=== PATIENT | female | born 1960 | race Caucasian/White ===

== ENCOUNTER 2020-06-09 09:15 | Inpatient (IN) | payer MEDICARE, OTHER ==
[2020-06-09] MEDS ORDERED: fentaNYL (PF) 50 MCG/ML 2 ML AMP ONE (10:15)
[2020-06-09] MEDS ORDERED: IV FLUID CONTINUATION 300 ML IV ONE (10:24)
[2020-06-09] MEDS ORDERED: fentaNYL (PF) 50 MCG/ML 2 ML AMP IV ONE (10:24)
[2020-06-09] MEDS ORDERED: SODIUM CHLORIDE 0.9% 1,000 ML IV ONE (10:25)
[2020-06-09] MEDS: LIDOCAINE 1% INJ 10MG/ML (20 ML MDV) SQ ONE ×2 (10:40→10:43)
[2020-06-09] MEDS ORDERED: LIDOCAINE 1% INJ 10MG/ML (20 ML MDV) SQ ONE (10:40)
[2020-06-09] MEDS ORDERED: IOPAMIDOL-370 125ML BTL INJ ONE (10:58)
[2020-06-09] MEDS ORDERED: IOPAMIDOL-370 50ML BTL INJ ONE (10:58)
[2020-06-09] MEDS ORDERED: RX INFO: IV CONTRAST WAS GIVEN 1 EACH MISC MISCELLANE PRN (11:12)
--- NOTE | 2020-06-09 11:12 | P.CARDCATH ---
Description of Procedure: PROCEDURES PERFORMED: Left heart catheterization, bilateral coronary angiography INDICATION: NSTEMI HISTORY: Patient is a pleasant 60-year-old female with history of hypertension, psychiatric disorders, depression, anxiety who presented with accidental overdose of unknown medication and then was noted to be altered mental status. Patient had seizures in the emergency department at [facility] and therefore was intubated with Ativan drip placed. She had CT brain which showed no acute process. She had initial normal troponin however troponin elevated up to 2 and therefore cardiology was consult it. She also had EKGs which showed minimal ST elevation in lead V2, V3 in the lateral leads and bedside echo showed new-onset cardiomyopathy ejection fraction 25-30% with anterior hypokinesis. Due to concern of possible evolving KS, patient was transferred to [facility] for angiography and possible PCI. PROCEDURE: After the risks, benefits and alternatives of the above mentioned procedure explained in detail with the patient's nekt of kin, informed consent was obtained. Patient was taken to the catheterization lab and prepped and draped in usual fashion. 1% lidocaine was used to anesthetize the right femoral artery. A 6-Emirati sheath was placed in the right femoral artery using modified Seldinger technique and ultrasound. Left coronary angiography was performed with a 6-Emirati JL 3.5 catheter and right coronary angiography was performed with a 6-Emirati JR4 catheter in various views. A 6-Emirati pigtail catheter was inserted into the left ventricle and pressure measurements were obtained. Left ventriculography was performed in the [id number] projection with a power injection. A right femoral angiogram was performed with adequate anatomy for closure. A 6- Emirati Angio-Seal was placed with hemostasis achieved. The patient tolerated the procedure well. Patient was transported back to the post catheterization holding area in stable condition. Conscious Sedation: Patient was monitored under the direct supervision of vision of myself for conscious sedation using Versed and fentanyl for a total duration of 22 minutes HEMODYNAMICS: Aorta: 133/92 LV: 151/18, LVEDP 22 SELECTIVE CORONARY ARTERIOGRAPHY: LEFT MAIN: The left main is a large caliber vessel which trifurcates into the LAD, ramus and circumflex. There is no significant stenosis. LEFT ANTERIOR DESCENDING CORONARY ARTERY: LAD is a large caliber vessel which wraps around to the apex. There is no significant stenosis. RAMUS INTERMEDIUS: Moderate caliber ramus without significant stenosis. LEFT CIRCUMFLEX CORONARY ARTERY: Left circumflex is a moderate caliber vessel without significant stenosis. RIGHT CORONARY ARTERY: The right coronary artery is a large caliber vessel which gives off a PDA and PLV branch and is the dominant vessel. There is no significant stenosis. LEFT VENTRICULOGRAPHY: Left ventricular ejection fraction is 35-40% with apical hypokinesis likely consistent with Takotsubo's cardiomyopathy. There is no significant mitral regurgitation and no significant gradient with pullback across the aortic valve. FINAL IMPRESSION: 1. Normal coronary arteries as described above. 2. Reduced ejection fraction 35-40% percent apical hypokinesis likely consistent with Takotsubo's cardiomyopathy PLAN: 1. Aggressive risk factor modification per most recent ACC/AHA guidelines. 2. Optimization of heart failure regimen.
--- NOTE | 2020-06-09 15:18 | P.CNPUL ---
History of Present Illness Consult date: 06/09/20 Requesting physician: Jaxon Gates Reason for consult: other (Acute hypoxic respiratory failure secondary to seizure and possible drug overdose) Chief complaint: Mental status change. History of present illness: This is a 60-year-old female supposedly has multiple medical problems including seizure disorder, MS, depression, patient is primarily a patient of Patient presented to the ER at [facility], and she was noted to have altered mental status. While in the ER, patient developed seizure. Patient was intubated, and she was placed on Ativan drip after intubation. CT of the brain showed no acute process. Patient was noted to have normal troponin initially, however follow-up troponin was elevated by 2. Cardiology was consulted, EKG showed minimal ST elevation in lead V2 and V3 and in the lateral leads. Bedside echocardiogram showed severe cardiomyopathy with LV dysfunction of 25-50%, and anterior hypokinesis. The report specialist was concerned about possible evolving MT, hence he arrange for the patient to be transferred to [facility], and she underwent cardiac catheterization. noted to have normal coronaries, but extremely reduced ejection fraction and apical hypokinesis likely consistent with decreased to takostubo cardiomyopathy. 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 Patient is hemodynamically stable, she is sedated, on propofol drip, her ventilator settings are assist control rate of 14 FiO2 of 50% tidal volume is 500 and PEEP of 5. ABG is pending, and chest x-ray is pending. Supposedly the patient had a number of labs done while at [facility], none of them is available to me. There was also a concern that the patient may have overdosed on some of her medications, but the drug screen was basically unremarkable. Patient is on multiple medications for MS, depression, and she is also on methotrexate. Review of Systems ROS unobtainable: due to endotracheal tube Medications and Allergies Home Medications Medication Instructions Recorded Confirmed Type Baclofen [Lioresal] 10 mg PO BID 06/09/20 06/09/20 History DULoxetine HCL [Cymbalta] 60 mg PO DAILY 06/09/20 06/09/20 History Dalfampridine [Dalfampridine ER] 10 mg PO BID 06/09/20 06/09/20 History HYDROcodone/APAP 10-325MG [[place] 1 tab PO BID PRN 06/09/20 06/09/20 History 10-325] Levothyroxine Sodium [Synthroid] 75 mcg PO DAILY 06/09/20 06/09/20 History Losartan [Cozaar] 25 mg PO DAILY 06/09/20 06/09/20 History Mirabegron [Myrbetriq] 25 mg PO DAILY 06/09/20 06/09/20 History Morphine Sulfate Ir [MSIR] 15 mg PO Q8H 06/09/20 06/09/20 History Ondansetron [Zofran] 4 mg PO Q12HR PRN 06/09/20 06/09/20 History Peginterferon Beta-1A [Plegridy 125 mcg SQ Q28D 06/09/20 06/09/20 History Pen] Semaglutide [Ozempic] 0.25 mg SQ Q7D 06/09/20 06/09/20 History Topiramate [Topamax] 25 mg PO BID 06/09/20 06/09/20 History hydroCHLOROthiazide [Hydrodiuril] 12.5 mg PO DAILY 06/09/20 06/09/20 History lamoTRIgine [LaMICtal Xr] 50 mg PO DAILY 06/09/20 06/09/20 History metHOTREXate sodium [Methotrexate] 5 mg PO Q7D 06/09/20 06/09/20 History traZODone HCL [Desyrel] 50 mg PO HS 06/09/20 06/09/20 History Allergies Allergy/AdvReac Type Severity Reaction Status Date / Time Penicillins Allergy Unknown Unknown Verified 06/09/20 14:16 Physical Exam Vitals: Intake and Output 06/09/20 06/09/20 06/09/20 06:59 14:59 22:59 Intake Total 350 Balance 350 Intake: IV 350 Other: Weight 100 kg Physical Exam: Revealed 60-year-old female, obese, intubated and mechanically ventilated sedated on propofol. Head: Atraumatic, normocephalic. HEENT:[Neck is supple.] [No neck masses.] [No thyromegaly.] [No JVD.] Dry mucous membranes, orogastric tube and endotracheal tube are intact. Chest: [Symmetrical chest expansion, minimal crackles at the bases, no rhonchi and no wheezes. Cardiac Exam: [Normal S1 and S2, no S3 gallop, no murmur.] Abdomen: Obese, [Soft, nontender, no megaly, no rebound, no guarding, normal bowel sounds.] Extremities: [No clubbing, no edema, no cyanosis. Diminished pulses bilaterally.] Neurological Exam: Not assessed, patient is sedated, on propofol drip. Psychiatric: Could not assess. Musculoskeletal: No deformities. Assessment and Plan Assessment: Impression: Acute hypoxic respiratory failure secondary to status epilepticus requiring intubation and mechanical ventilation. Possible medications overdose. History of MS. History of depression. Morbid obesity. no documented history of seizure disorder. Possible cardiomyopathy. Nonischemic cardiomyopathy. Recommendation: Continue ventilatory support. Neurological consultation regarding seizure medications in the meantime continue propofol. Patient may have to be placed on Keppra. Neurology to address her MS medications. Enteral feeding to be started possibly tomorrow in the patient remains intubated. GI and DVT prophylaxis. Empiric antibiotics/Zosyn for possible aspiration. Chest x-ray is pending. Hemodynamic support if necessary, patient is not requiring any pressors or any inotropes at this point. Prognosis is guarded, we'll continue to follow. Time with Patient: Greater than 30
[2020-06-09] MEDS ORDERED: propofoL 100 ML IV ONE (15:28)
--- NOTE | 2020-06-09 15:37 | XR ---
EXAMINATION TYPE: XR chest 1V portable DATE OF EXAM: 06/09/2020 COMPARISON: NONE HISTORY: Check tube placement TECHNIQUE: Single view FINDINGS: There is nasogastric tube with the tip in the gastric fundus. There is endotracheal tube 3 cm from the marsha. There is some atelectasis in the left midlung field. There is no heart failure. B cat thorax is intact. IMPRESSION: Tubing in good position. Mild left side atelectasis.
[2020-06-09 15:38] LABS: ABG Base Excess -4.2 mmol/L; ABG HCO3 20 mmol/L (21-25); ABG Oxygen Saturation 95.4 % (94-97); ABG PCO2 32 mmHg (35-45); ABG PH 7.42 (7.35-7.45); ABG PO2 72 mmHg (83-108); ABG TCO2 21 mmol/L (19-24); Allen Test Performed? Yes
[2020-06-09] MEDS: PANTOPRAZOLE 40 MG/10 ML VIAL IVP SCH (15:39)
[2020-06-09] MEDS: ENOXAPARIN 40 MG/0.4 ML SYRINGE SQ SCH (15:39)
[2020-06-09] MEDS: CLINDAMYCIN 600 MG in DEXTROSE 5% IN WATER 50 ML IVPB SCH ×2 (15:39)
[2020-06-09] MEDS: levETIRAcetam IV 500 MG in SODIUM CHLORIDE 0.9% 100 ML IVPB SCH (15:43)
[2020-06-09 16:11] LABS: Basophils % (A) 0 %; Eosinophils % (A) 1 %; HGB 13.2 gm/dL (11.4-16.0); Lymphocytes # (A) 0.5 k/uL (1.0-4.8); Lymphocytes % (A) 7 %; MCV 94.1 fL (80.0-100.0); Mean Platelet Volume 7.6; Monocytes # (A) 0.4 k/uL (0-1.0); Monocytes % (A) 5 %; Neutrophils # (A) 6.4 k/uL (1.3-7.7); Neutrophils % (A) 86 %; Platelet Count 203 k/uL (150-450); RBC 4.14 m/uL (3.80-5.40); RDW 14.1 % (11.5-15.5); WBC 7.4 k/uL (3.8-10.6)
[2020-06-09 16:25] LABS: ALT 28 U/L (4-34); AST 39 U/L (14-36); African American GFR (CKD) >90 (>60 ml/min/1.73 sqM); Albumin 3.4 g/dL (3.5-5.0); Alkaline Phosphatase 76 U/L (38-126); Anion Gap 6 mmol/L; Blood Urea Nitrogen 9 mg/dL (7-17); Calcium 8.8 mg/dL (8.4-10.2); Carbon Dioxide 20 mmol/L (22-30); Chloride 114 mmol/L (98-107); Glucose 143 mg/dL (74-99); Magnesium 2.2 mg/dL (1.6-2.3); Non-African American GFR(CKD) >90 (>60 ml/min/1.73 sqM); Potassium 3.5 mmol/L (3.5-5.1); Sodium 140 mmol/L (137-145); Total Bilirubin 1.9 mg/dL (0.2-1.3); Total Protein 5.8 g/dL (6.3-8.2)
--- NOTE | 2020-06-09 17:45 | P.CNNES ---
History of Present Illness Consult date: 06/09/20 Requesting physician: Diaz Villarreal Reason for Consult: Altered mental status, seizures History of Present Illness: The patient is a 60-year-old female seen via tele-neurology for altered mental status and seizures. Patient was transferred this morning from [facility] to [facility] today at 10 am, for cardiac catheterization, and bilateral coronary angiography. Patient was initially admitted to [facility] yesterday for altered mental status, some concern about overdose on baclofen. Patient was found to have some ST segment elevation and abnormal 2-D echo. Patient had 2 seizures, was intubated, transferred to ICU. Patient was subsequently transferred to [facility] for further testing. According to EMS flow sheet, patient had undergone coronary angiography yesterday at [facility]. After the angiography, patient had 2 seizures in the ER. It was reported the patient may have overdosed on her baclofen causing her symptoms. Patient was intubated in [facility] ER and transferred to their ICU. Patient was found to have elevated troponin at 2.3, and some EKG changes. Patient had an echocardiogram completed and was found to have decreased cardiac activity and is being transferred to [facility] for possible intervention with cardiac cath. Per EMS report, her pupils were equal and reactive, lungs sounds clear and equal ramón aterally. Patient was intubated with size 7.0 ET tube. Her vital signs at the scene was blood pressure 152/80, pulse rate 94, saturation 97%, temperature 100.8. Patient had undergone computed tomography scan of the head without contrast as well as computed tomography scan of the head with contrast at [facility], both of which were normal. Patient has a negative urine drug screen and blood alcohol level. Chest x-ray performed here showed tubing in good position. Mild left-sided atelectasis. Patient's CBC is normal. ABG with pH 7.42, pCO2 32, saturation 95.4. Sodium and potassium normal. Renal functions normal. AST is mildly elevated 39, normal ALT 28. According to patient's home medication list, she is on Ampyra and Plegridy, indicating that she probably has multiple sclerosis. Uncertain as to who her neurologist is. No records available in our system. Patient's home medications were reviewed. Patient ICU has been receiving Ativan drip, also received some fentanyl, therefore at this time patient is sedated. Review of Systems ROS unobtainable: due to endotracheal tube, due to mental status Medications and Allergies Home Medications Medication Instructions Recorded Confirmed Type Baclofen [Lioresal] 10 mg PO BID 06/09/20 06/09/20 History DULoxetine HCL [Cymbalta] 60 mg PO DAILY 06/09/20 06/09/20 History Dalfampridine [Dalfampridine ER] 10 mg PO BID 06/09/20 06/09/20 History HYDROcodone/APAP 10-325MG [[place] 1 tab PO BID PRN 06/09/20 06/09/20 History 10-325] Levothyroxine Sodium [Synthroid] 75 mcg PO DAILY 06/09/20 06/09/20 History Losartan [Cozaar] 25 mg PO DAILY 06/09/20 06/09/20 History Mirabegron [Myrbetriq] 25 mg PO DAILY 06/09/20 06/09/20 History Morphine Sulfate Ir [MSIR] 15 mg PO Q8H 06/09/20 06/09/20 History Ondansetron [Zofran] 4 mg PO Q12HR PRN 06/09/20 06/09/20 History Peginterferon Beta-1A [Plegridy 125 mcg SQ Q28D 06/09/20 06/09/20 History Pen] Semaglutide [Ozempic] 0.25 mg SQ Q7D 06/09/20 06/09/20 History Topiramate [Topamax] 25 mg PO BID 06/09/20 06/09/20 History hydroCHLOROthiazide [Hydrodiuril] 12.5 mg PO DAILY 06/09/20 06/09/20 History lamoTRIgine [LaMICtal Xr] 50 mg PO DAILY 06/09/20 06/09/20 History metHOTREXate sodium [Methotrexate] 5 mg PO Q7D 06/09/20 06/09/20 History traZODone HCL [Desyrel] 50 mg PO HS 06/09/20 06/09/20 History Allergies Allergy/AdvReac Type Severity Reaction Status Date / Time Penicillins Allergy Unknown Unknown Verified 06/09/20 14:16 Physical Examination - Vital Signs Vital Signs: Intake and Output 06/08/20 06/09/20 06/09/20 22:59 06:59 14:59 Intake Total 350 Balance 350 Intake: IV 350 Other: Weight 100 kg On examination patient is a middle aged female, who is laying in the bed, intubated on mechanical ventilation. Patient at present is sedated, has just an hour ago stopped infusion of high dose Ativan drip. Patient's pupils are round and reacting, no corneals, no gag. Oculocephalics are present. Phase cannot be assessed as patient is intubated. Tongue and palate, hearing cannot be assessed. Muscle strength cannot be assessed. Patient does not withdraw to any painful stimuli. Tone is equal in the arms. Reflexes are diminished and plantars are flat. No obvious seizure activity noted. No obvious rash. No edema. S1 and S2 audible. Abdomen is soft nontender. Results - Laboratory Findings CBC and BMP: 06/09/20 15:30 06/09/20 15:30 Assessment and Plan Assessment: * Altered mental status, probable toxic metabolic encephalopathy. * Probable intention overdose on medication * Acute respiratory failure secondary to status epilepticus, requiring intubation and mechanical ventilation. * Recurrent seizure, possible status, now resolved. * History of Multiple sclerosis * Morbid obesity * Nonischemic cardiomyopathy. Plan: * Patient at present is intubated, heavily sedated, therefore examination is limited. No signs of obvious seizure activity. * Agree with starting Keppra 500 mg twice a day. * Stat EEG to rule out status epilepticus. * Resume Lamictal and Topamax, but discontinue Ampyra. * Medical management as per IM and ICU. * Spoke to patient's boyfriend Joni, is that there was a family argument and she became upset and took some bunch of pills which he did not know at all which ones she took. He told her to throw up and she did try to throw them up but then she did not feel well, therefore he brought her to the [facility]. He states the patient is not suicidal, it was just result of some family argument that she acted. She has MS, but does not know the name of her neurologist. * We will follow.
[2020-06-09 17:59] LABS: Appearance,Urine Turbid (Clear); Bilirubin,Urine Negative (Negative); Blood,Urine Large (Negative); Color,Urine Light Red; Glucose,Urine (UA) 3+ (Negative); Ketones,Urine Trace (Negative); Leukocyte Esterase,Urine Negative (Negative); Mucus,Urine Few /hpf; Nitrite,Urine Negative (Negative); PH, Urine 5.5 (5.0-8.0); Protein,Urine 1+ (Negative); RBC,Urine >182 /hpf (0-5); Squamous Epithelial Cell,Urine 1 /hpf (0-4); Urobilinogen,Urine <2.0 mg/dL (<2.0); WBC,Urine 1 /hpf (0-5)
[2020-06-09 18:00] LABS: Specific Gravity,Urine >1.050 (1.001-1.035)
[2020-06-09] MEDS ORDERED: Potassium Replacement Protocol 1 EACH MISC MISCELLANE PRN (19:11)
[2020-06-09] MEDS: POTASSIUM BICARBONATE/CIT AC 20 MEQ TABLET.EFF NG-TUBE SCH ×2 (20:32→21:22)
[2020-06-09] MEDS: TOPIRAMATE 25 MG TAB PO SCH (21:21)
[2020-06-09] MEDS: CHLORHEXIDINE GLUCONATE 15 ML CUP MUCOUS MEM SCH (21:21)
[2020-06-10] MEDS: CLINDAMYCIN 600 MG in DEXTROSE 5% IN WATER 50 ML IVPB SCH ×8 (00:57→23:41)
[2020-06-10] MEDS: levETIRAcetam IV 500 MG in SODIUM CHLORIDE 0.9% 100 ML IVPB SCH ×3 (00:57→23:42)
--- NOTE | 2020-06-10 01:00 | PCN ---
PROCEDURE NOTE OPERATIVE REPORT: Placement of left brachial arterial line. PREOPERATIVE DIAGNOSIS: Acute hypoxic respiratory failure. POSTOPERATIVE DIAGNOSIS: Acute hypoxic respiratory failure. ANESTHESIA: None deployed. PROCEDURE DETAILS: The patient was placed in the supine position, and the left brachial region was prepared in a sterile fashion. Drapes were applied. The left brachial artery was palpated, cannulated, a guidewire was placed, and a Cook's catheter was inserted over the guidewire, the guidewire was removed. Good blood flow, good waveform noted, no evidence of any complications, the line was secured using 3.0 silk sutures. MMODL / IJN: [id number] /
[2020-06-10 03:30] LABS: Basophils % (A) 0 %; Eosinophils # (A) 0.1 k/uL (0-0.7); Eosinophils % (A) 1 %; HCT 38.1 % (34.0-46.0); HGB 12.9 gm/dL (11.4-16.0); Lymphocytes # (A) 0.6 k/uL (1.0-4.8); Lymphocytes % (A) 9 %; MCH 31.7 pg (25.0-35.0); MCHC 33.8 g/dL (31.0-37.0); MCV 93.9 fL (80.0-100.0); Mean Platelet Volume 7.7; Monocytes # (A) 0.3 k/uL (0-1.0); Monocytes % (A) 5 %; Neutrophils # (A) 5.7 k/uL (1.3-7.7); Neutrophils % (A) 84 %; Platelet Count 175 k/uL (150-450); RBC 4.05 m/uL (3.80-5.40); RDW 14.1 % (11.5-15.5); WBC 6.8 k/uL (3.8-10.6)
[2020-06-10 03:41] LABS: ALT 28 U/L (4-34); AST 45 U/L (14-36); African American GFR (CKD) >90 (>60 ml/min/1.73 sqM); Albumin 3.2 g/dL (3.5-5.0); Alkaline Phosphatase 74 U/L (38-126); Anion Gap 5 mmol/L; Blood Urea Nitrogen 9 mg/dL (7-17); Calcium 8.6 mg/dL (8.4-10.2); Carbon Dioxide 22 mmol/L (22-30); Chloride 112 mmol/L (98-107); Glucose 133 mg/dL (74-99); Non-African American GFR(CKD) >90 (>60 ml/min/1.73 sqM); Potassium 3.4 mmol/L (3.5-5.1); Sodium 139 mmol/L (137-145); Total Bilirubin 1.9 mg/dL (0.2-1.3); Total Protein 5.6 g/dL (6.3-8.2)
[2020-06-10 05:34] LABS: ABG Base Excess -2.8 mmol/L; ABG HCO3 22 mmol/L (21-25); ABG Oxygen Saturation 98.6 % (94-97); ABG PCO2 36 mmHg (35-45); ABG PH 7.39 (7.35-7.45); ABG PO2 114 mmHg (83-108); ABG TCO2 23 mmol/L (19-24); Allen Test Performed? Yes
[2020-06-10] MEDS: LEVOTHYROXINE 75 MCG TAB PO SCH (05:55)
[2020-06-10] MEDS: POTASSIUM BICARBONATE/CIT AC 20 MEQ TABLET.EFF NG-TUBE SCH ×2 (05:56→09:37)
--- NOTE | 2020-06-10 07:13 | XR ---
EXAMINATION TYPE: XR chest 1V portable DATE OF EXAM: 06/10/2020 COMPARISON: Chest x-ray 06/09/2020 HISTORY: Intubated TECHNIQUE: Single frontal view of the chest is obtained. FINDINGS: Endotracheal tube is overlying appropriate position, there is an orogastric tube present a lso overlying appropriate position. No evident pneumothorax or pleural effusion. Patchy densities pre sent within the bilateral lungs. Cardiac mediastinal silhouette is within normal limits. IMPRESSION: Correlate for pneumonia
[2020-06-10] MEDS: CHLORHEXIDINE GLUCONATE 15 ML CUP MUCOUS MEM SCH ×2 (09:36→20:55)
[2020-06-10] MEDS: lamoTRIgine 25 MG TAB PO SCH (09:37)
[2020-06-10] MEDS: ENOXAPARIN 40 MG/0.4 ML SYRINGE SQ SCH (09:37)
[2020-06-10] MEDS: TOPIRAMATE 25 MG TAB PO SCH ×2 (09:38→20:55)
[2020-06-10] MEDS: PANTOPRAZOLE 40 MG/10 ML VIAL IVP SCH (09:38)
--- NOTE | 2020-06-10 12:55 | P.PN ---
Subjective Progress Note Date: 06/10/20 Principal diagnosis: Acute hypoxic respiratory failure secondary to seizure disorder and possibly multiple drug overdose. This is a 60-year-old female supposedly has multiple medical problems including seizure disorder, MS, depression, patient is primarily a patient of Patient presented to the ER at [facility], and she was noted to have altered mental status. While in the ER, patient developed seizure. Patient was intubated, and she was placed on Ativan drip after intubation. CT of the brain showed no acute process. Patient was noted to have normal troponin initially, however follow-up troponin was elevated by 2. Cardiology was consulted, EKG showed minimal ST elevation in lead V2 and V3 and in the lateral leads. Bedside echocardiogram showed severe cardiomyopathy with LV dysfunction of 25-50%, and anterior hypokinesis. The paving supervisor was concerned about possible evolving ND, hence he arrange for the patient to be transferred to [facility], and she underwent cardiac catheterization. noted to have normal coronaries, but extremely reduced ejection fraction and apical hypokinesis likely consistent with decreased to takostubo cardiomyopathy. 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 Patient is hemodynamically stable, she is sedated, on propofol drip, her ventilator settings are assist control rate of 14 FiO2 of 50% tidal volume is 500 and PEEP of 5. ABG is pending, and chest x-ray is pending. Supposedly the patient had a number of labs done while at [facility], none of them is available to me. There was also a concern that the patient may have overdosed on some of her medications, but the drug screen was basically unremarkable. Patient is on multiple medications for MS, depression, and she is also on methotrexate. Patient was reevaluated today on 06/10/2020, patient remains in the ICU, intubated and mechanically ventilated. She is on assist control rate of 14 tidal volume of 500 FiO2 40% PEEP of 5. I cut down her FiO2 down to 35%. ABG showed a pO2 of 114 pCO2 36 pH of 7.39. Patient is on propofol which I plan to hold and assess mental status as well as possibly assess for potential weaning. This was done, and shortly after the dose went down patient was extremely agitated, biting on the tube, was not appropriate, and she was placed back on propofol. Chest x-ray today was reviewed. It showed patchy densities within bilateral lung, very much consistent with the clinical picture of aspiration pneumonia, patient remains on antibiotics empirically for aspiration pneumonia. CBC showed normal WBC count normal hemoglobin normal differential. And normal platelets. Basic metabolic profile is normal except for low potassium of 3.4. Liver enzymes are borderline elevated. Urinalysis is relatively unremarkable except for hematuria, possibly related to catheter insertion. Objective - Vital Signs Vital signs: Vital Signs Temp 98.9 F 06/10/20 11:00 Pulse 67 06/10/20 11:00 Resp 28 H 06/10/20 11:00 BP 109/66 06/10/20 11:00 Pulse Ox 100 06/10/20 11:00 Intake & Output 06/09/20 06/10/20 06/10/20 18:59 06:59 18:59 Intake Total 700 665.5 Output Total 340 517 Balance 360 148.5 Weight 135.8 kg 136.1 kg Intake: IV 700 600 0.9@50 350 600 Intake, IV Titration 65.5 Amount propofoL 1,000 mg In 65.5 Empty Bag 1 bag @ Titrate IV .Q0M [facility] Rx#: [id number] Output: Urine 340 517 Other: Voiding Method Indwelling Catheter Indwelling Catheter Indwelling Catheter ABP, PAP, CO, CI - Last Documented Arterial Blood Pressure 127/59 - Exam Physical Exam: Revealed 60-year-old female, obese, intubated and mechanically ventilated sedated on propofol. Head: Atraumatic, normocephalic. HEENT:[Neck is supple.] [No neck masses.] [No thyromegaly.] [No JVD.] Dry mucous membranes, orogastric tube and endotracheal tube are intact. Chest: [Symmetrical chest expansion, minimal crackles at the bases, no rhonchi and no wheezes. Cardiac Exam: [Normal S1 and S2, no S3 gallop, no murmur.] Abdomen: Obese, [Soft, nontender, no megaly, no rebound, no guarding, normal bowel sounds.] Extremities: [No clubbing, no edema, no cyanosis. Diminished pulses bilaterally.] Neurological Exam: Not assessed, patient is sedated, on propofol drip. Psychiatric: Could not assess. Musculoskeletal: No deformities. - Labs CBC & Chem 7: 06/10/20 03:20 06/10/20 03:20 Labs: Abnormal Lab Results - Last 24 Hours (Table) 06/09/20 06/09/20 06/09/20 Range/Units 15:30 15:30 15:30 Lymphocytes # 0.5 L (1.0-4.8) k/uL ABG pCO2 (35-45) mmHg ABG pO2 (83-108) mmHg ABG HCO3 (21-25) mmol/L ABG O2 Saturation (94-97) % Potassium (3.5-5.1) mmol/L Chloride 114 H (98-107) mmol/L Carbon Dioxide 20 L (22-30) mmol/L Glucose 143 H (74-99) mg/dL Total Bilirubin 1.9 H (0.2-1.3) mg/dL AST 39 H (14-36) U/L Total Protein 5.8 L (6.3-8.2) g/dL Albumin 3.4 L (3.5-5.0) g/dL Urine Appearance Turbid H (Clear) Ur Specific [place] >1.050 H (1.001-1.035) Urine Protein 1+ H (Negative) Urine Glucose (UA) 3+ H (Negative) Urine Ketones Trace H (Negative) Urine Blood Large H (Negative) Urine RBC >182 H (0-5) /hpf Urine Mucus Few H (None) /hpf 06/09/20 06/10/20 06/10/20 Range/Units 15:35 03:20 03:20 Lymphocytes # 0.6 L (1.0-4.8) k/uL ABG pCO2 32 L (35-45) mmHg ABG pO2 72 L (83-108) mmHg ABG HCO3 20 L (21-25) mmol/L ABG O2 Saturation (94-97) % Potassium 3.4 L (3.5-5.1) mmol/L Chloride 112 H (98-107) mmol/L Carbon Dioxide (22-30) mmol/L Glucose 133 H (74-99) mg/dL Total Bilirubin 1.9 H (0.2-1.3) mg/dL AST 45 H (14-36) U/L Total Protein 5.6 L (6.3-8.2) g/dL Albumin 3.2 L (3.5-5.0) g/dL Urine Appearance (Clear) Ur Specific [place] (1.001-1.035) Urine Protein (Negative) Urine Glucose (UA) (Negative) Urine Ketones (Negative) Urine Blood (Negative) Urine RBC (0-5) /hpf Urine Mucus (None) /hpf 06/10/20 Range/Units 05:25 Lymphocytes # (1.0-4.8) k/uL ABG pCO2 (35-45) mmHg ABG pO2 114 H (83-108) mmHg ABG HCO3 (21-25) mmol/L ABG O2 Saturation 98.6 H (94-97) % Potassium (3.5-5.1) mmol/L Chloride (98-107) mmol/L Carbon Dioxide (22-30) mmol/L Glucose (74-99) mg/dL Total Bilirubin (0.2-1.3) mg/dL AST (14-36) U/L Total Protein (6.3-8.2) g/dL Albumin (3.5-5.0) g/dL Urine Appearance (Clear) Ur Specific [place] (1.001-1.035) Urine Protein (Negative) Urine Glucose (UA) (Negative) Urine Ketones (Negative) Urine Blood (Negative) Urine RBC (0-5) /hpf Urine Mucus (None) /hpf Microbiology - Last 24 Hours (Table) 06/09/20 15:30 Gram Stain - Preliminary Sputum Sputum Culture - Preliminary Assessment and Plan Assessment: Impression: Acute hypoxic respiratory failure secondary to status epilepticus requiring intubation and mechanical ventilation. Possible medications overdose. History of MS. History of depression. Morbid obesity. no documented history of seizure disorder. Possible cardiomyopathy. Nonischemic cardiomyopathy. Recommendation: Continue ventilatory support. continue propofol. Started on Keppra by neurology. Neurology is addressing her issue related to her seizures and related to her MS. Start enteral feeding today via orogastric tube. Short trial of sedation holiday was given today, however the patient could not tolerate coming off propofol Bishop had to be re-sedated and we will readdress weaning and extubation probably in the next 24 hours. GI and DVT prophylaxis. Empiric antibiotics cLindamycin for aspiration pneumonia. Patient remains quite ill, not ready for weaning and extubation, critical care time is over 30 minutes Time with Patient: Greater than 30
[2020-06-10] MEDS ORDERED: FUROSEMIDE 10 MG/ML 2 ML VIAL IV ONE (18:00)
[2020-06-10] MEDS ORDERED: POTASSIUM BICARBONATE/CIT AC 20 MEQ TABLET.EFF NG-TUBE SCH (18:00)
--- NOTE | 2020-06-10 20:11 | P.CRDCN ---
History of Present Illness History of present illness: HISTORY OF PRESENTING ILLNESS Patient is a pleasant 60-year-old female with history of hypertension, psychiatric disorders, depression, anxiety who presented with accidental overdose of unknown medication and then was noted to be altered mental status. Patient had seizures in the emergency department at [facility] and therefore was intubated with Ativan drip placed. She had CT brain which showed no acute process. She had initial normal troponin however troponin elevated up to 2 and therefore cardiology was consult it. She also had EKGs which showed minimal ST elevation in lead V2, V3 in the lateral leads and bedside echo showed new-onset cardiomyopathy ejection fraction 25-30% with anterior hypokinesis. Due to concern of possible evolving NM, patient was transferred to [facility] for angiography and possible PCI. Left heart catheterization was performed yesterday which showed normal coronary arteries and left ventricular gram showed mildly improved ejection fraction 35-40% with apical hypokinesis consistent with Takotsubo's cardiomyopathy. She is still somewhat altered when weaning was attempted and she remains on ventilator. REVIEW OF SYSTEMS At the time of my exam: Unable to obtain secondary to altered mental status, intubation PHYSICAL EXAMINATION Vital signs reviewed. CONSTITUTIONAL: No apparent distress, sedated on ventilator HEENT: Head is normocephalic. Pupils are equal, round. Sclerae anicteric. Mucous membranes of the mouth are moist. +ETT No JVD. No carotid bruit. CHEST EXAMINATION: Lungs are clear to auscultation. No chest wall tenderness is noted on palpation or with deep breathing. HEART EXAMINATION: Regular rate and rhythm. S1, S2 heard. No murmurs, gallops or rub. ABDOMEN: Soft, nontender. Positive bowel sounds. EXTREMITIES: 2+ peripheral pulses, no lower extremity edema and no calf tenderness. NEUROLOGIC EXAMINATION: Patient is sedated on ventilator. ASSESSMENT 1. Non-STEMI 2. Takotsubo's cardiomyopathy with EF mildly improved on left ventriculogram to 35-40% 3. Ventilator dependent respiratory failure secondary to altered mental status 4. Accidental drug overdose 5. Essential hypertension 6. Altered mental status PLAN Optimize heart failure regimen as able. Toprol has able and continue daily aspirin. Hopeful extubation tomorrow. Further recommendations to follow. Past Medical History Past Medical History: Coronary Artery Disease (CAD), Chest Pain / Angina, Heart Failure, COPD, Eye Disorder, Liver Disease, Respiratory Disorder Additional Past Medical History / Comment(s): HIV, IV drug abuse, ETOH (unsure last drink), Multiple sclerosis, NM, heart failure, possibe unknown cancer, blind right eye. swelling bilateral lower extremities, anxiety, and depression. Information provided by daughter, Candelaria Amos History of Any Multi-Drug Resistant Organisms: None Reported Past Surgical History: Cholecystectomy, Heart Catheterization, Hysterectomy Past Psychological History: Anxiety, Depression Smoking Status: Former smoker Past Alcohol Use History: Occasional Past Drug Use History: IV Drug Use - Past Family History Daughter(s) Family Medical History: Thyroid Disorder Additional Family Medical History / Comment(s): cardiomyopathy, anxiety, cholecystitis Medications and Allergies Home Medications Medication Instructions Recorded Confirmed Type Baclofen [Lioresal] 10 mg PO BID 06/09/20 06/09/20 History DULoxetine HCL [Cymbalta] 60 mg PO DAILY 06/09/20 06/09/20 History Dalfampridine [Dalfampridine ER] 10 mg PO BID 06/09/20 06/09/20 History HYDROcodone/APAP 10-325MG [[place] 1 tab PO BID PRN 06/09/20 06/09/20 History 10-325] Levothyroxine Sodium [Synthroid] 75 mcg PO DAILY 06/09/20 06/09/20 History Losartan [Cozaar] 25 mg PO DAILY 06/09/20 06/09/20 History Mirabegron [Myrbetriq] 25 mg PO DAILY 06/09/20 06/09/20 History Morphine Sulfate Ir [MSIR] 15 mg PO Q8H 06/09/20 06/09/20 History Ondansetron [Zofran] 4 mg PO Q12HR PRN 06/09/20 06/09/20 History Peginterferon Beta-1A [Plegridy 125 mcg SQ Q28D 06/09/20 06/09/20 History Pen] Semaglutide [Ozempic] 0.25 mg SQ Q7D 06/09/20 06/09/20 History Topiramate [Topamax] 25 mg PO BID 06/09/20 06/09/20 History hydroCHLOROthiazide [Hydrodiuril] 12.5 mg PO DAILY 06/09/20 06/09/20 History lamoTRIgine [LaMICtal Xr] 50 mg PO DAILY 06/09/20 06/09/20 History metHOTREXate sodium [Methotrexate] 5 mg PO Q7D 06/09/20 06/09/20 History traZODone HCL [Desyrel] 50 mg PO HS 06/09/20 06/09/20 History Allergies Allergy/AdvReac Type Severity Reaction Status Date / Time Penicillins Allergy Unknown Unknown Verified 06/09/20 14:16 Physical Exam Vitals: Vital Signs Temp Pulse Pulse Resp BP Pulse Ox 06/10/20 19:00 84 14 133/66 100 06/10/20 18:00 73 18 125/71 100 06/10/20 17:00 69 14 100 06/10/20 16:00 99.5 F 81 15 129/68 100 06/10/20 15:00 68 17 123/67 100 06/10/20 14:00 65 14 130/68 100 06/10/20 13:00 68 16 119/63 100 06/10/20 12:00 98.9 F 73 14 123/65 97 06/10/20 11:00 98.9 F 67 28 H 109/66 100 06/10/20 10:00 70 16 107/58 100 06/10/20 09:00 70 16 101/59 99 06/10/20 08:00 98.5 F 71 18 112/48 100 06/10/20 07:00 64 18 111/50 100 06/10/20 06:00 77 18 103/50 100 06/10/20 05:00 78 16 99/53 99 06/10/20 04:00 97.9 F 84 15 110/51 99 06/10/20 03:36 83 16 06/10/20 03:00 91 17 110/54 100 06/10/20 02:00 87 18 106/62 100 06/10/20 01:00 82 18 106/55 100 06/10/20 00:00 98.5 F 82 84 16 100 06/09/20 23:00 80 17 110/63 100 06/09/20 22:00 80 16 112/62 98 06/09/20 21:30 84 17 112/62 99 06/09/20 21:00 77 17 98/60 99 06/09/20 20:30 81 15 98/60 98 Intake and Output 06/10/20 06/10/20 06/10/20 06:59 14:59 22:59 Intake Total 515.5 450 250 Output Total 312 195 90 Balance 203.5 255 160 Intake: IV 450 350 250 0.9@50 450 350 250 Intake, IV Titration 65.5 100 Amount propofoL 1,000 mg In 65.5 100 Empty Bag 1 bag @ Titrate IV .Q0M [facility] Rx#: [id number] Output: Urine 312 195 90 Other: Voiding Method Indwelling Catheter Indwelling Catheter Indwelling Catheter Weight 136.1 kg ABP, PAP, CO, CI - Last 8 Hours Arterial Blood Pressure 137/68 Arterial Blood Pressure 150/74 Arterial Blood Pressure 144/69 Arterial Blood Pressure 133/65 Arterial Blood Pressure 133/61 Arterial Blood Pressure 124/58 Arterial Blood Pressure 134/60 Results 06/10/20 03:20 06/10/20 15:30 Cardiac Enzymes 06/10/20 Range/Units 03:20 AST 45 H (14-36) U/L CBC 06/10/20 Range/Units 03:20 WBC 6.8 (3.8-10.6) k/uL RBC 4.05 (3.80-5.40) m/uL Hgb 12.9 (11.4-16.0) gm/dL Hct 38.1 (34.0-46.0) % Plt Count 175 (150-450) k/uL Comprehensive Metabolic Panel 06/10/20 06/10/20 Range/Units 03:20 15:30 Sodium 139 (137-145) mmol/L Potassium 3.4 L 3.6 (3.5-5.1) mmol/L Chloride 112 H (98-107) mmol/L Carbon Dioxide 22 (22-30) mmol/L BUN 9 (7-17) mg/dL Creatinine 0.56 (0.52-1.04) mg/dL Glucose 133 H (74-99) mg/dL Calcium 8.6 (8.4-10.2) mg/dL AST 45 H (14-36) U/L ALT 28 (4-34) U/L Alkaline Phosphatase 74 (38-126) U/L Total Protein 5.6 L (6.3-8.2) g/dL Albumin 3.2 L (3.5-5.0) g/dL Current Medications Generic Name Dose Route Start Last Admin Trade Name Freq PRN Reason Stop Dose Admin Chlorhexidine Gluconate 15 ml 06/09/20 21:00 06/10/20 09:36 Chlorhexidine Gluconate 15 Ml Cup MUCOUS MEM 15 ml BID JASPREET Administration Enoxaparin Sodium 40 mg 06/09/20 15:00 06/10/20 09:37 Enoxaparin 40 Mg/0.4 Ml Syringe SQ 40 mg DAILY JASPREET Administration Clindamycin Phosphate 600 mg/ 54 mls @ 50 mls/hr 06/09/20 16:00 06/10/20 15:26 Dextrose/Water IVPB 50 mls/hr Q8HR JASPREET Administration Levetiracetam 500 mg/ Sodium 105 mls @ 400 mls/hr 06/09/20 16:00 06/10/20 11:00 Chloride IVPB 400 mls/hr Q12HR@0000,1200 JASPREET Administration Propofol 1,000 mg/ IV Solution 100 mls @ 0 mls/hr 06/09/20 16:00 06/10/20 17: 03 IV 15 mcg/kg/min .Q0M JASPREET 12.249 mls/hr Administration Protocol Titrate Sodium Chloride 1,000 mls @ 20 mls/hr 06/10/20 18:45 Saline 0.9% IV .Q24H JASPREET Lamotrigine 50 mg 06/10/20 09:00 06/10/20 09:37 Lamotrigine 25 Mg Tab PO 50 mg DAILY JASPREET Administration Levothyroxine Sodium 75 mcg 06/10/20 06:30 06/10/20 05:55 Levothyroxine 75 Mcg Tab PO 75 mcg DAILY@0630 JASPREET Administration Miscellaneous Information 1 each 06/09/20 11:12 Rx Info: Iv Contrast Was Given 1 Each Misc MISCELLANE 06/11/20 11:12 DAILY PRN Per Protocol Miscellaneous Information 1 each 06/09/20 19:11 Potassium Replacement Protocol 1 Each Misc MISCELLANE DAILY PRN Per Protocol Protocol Pantoprazole Sodium 40 mg 06/09/20 15:00 06/10/20 09:38 Pantoprazole 40 Mg/10 Ml Vial IVP 40 mg DAILY JASPREET Administration Topiramate 25 mg 06/09/20 21:00 06/10/20 09:38 Topiramate 25 Mg Tab PO 25 mg BID JASPREET Administration Intake and Output 06/10/20 06/10/20 06/10/20 06:59 14:59 22:59 Intake Total 515.5 450 250 Output Total 312 195 90 Balance 203.5 255 160 Intake: IV 450 350 250 0.9@50 450 350 250 Intake, IV Titration 65.5 100 Amount propofoL 1,000 mg In 65.5 100 Empty Bag 1 bag @ Titrate IV .Q0M [facility] Rx#: [id number] Output: Urine 312 195 90 Other: Voiding Method Indwelling Catheter Indwelling Catheter Indwelling Catheter Weight 136.1 kg 06/10/20 03:20 06/10/20 15:30
--- NOTE | 2020-06-10 23:10 | P.PN ---
Subjective Progress Note Date: 06/10/20 This is a follow-up tele-neurology follow-up performed today on 06/10/2020. Patient has not had any more seizures. According to the nursing report, one of the nurse from last night, checked with poison control. Patient was recommended to be on benzodiazepines. Antiepileptic medications typically does not help with seizures/encephalopathy from baclofen overdose. EEG is still pending. Objective - Vital Signs Vital signs: Vital Signs Temp 98.1 F 06/10/20 20:00 Pulse 87 06/10/20 21:00 Resp 15 06/10/20 21:00 BP 125/45 06/10/20 21:00 Pulse Ox 100 06/10/20 21:00 Intake & Output 06/10/20 06/10/20 06/11/20 06:59 18:59 06:59 Intake Total 665.5 700 50 Output Total 517 285 340 Balance 148.5 415 -290 Weight 136.1 kg Intake: IV 600 600 50 0.9@50 600 600 50 Intake, IV Titration 65.5 100 Amount propofoL 1,000 mg In 65.5 100 Empty Bag 1 bag @ Titrate IV .Q0M [facility] Rx#: [id number] Output: Urine 517 285 340 Other: Voiding Method Indwelling Catheter Indwelling Catheter Indwelling Catheter ABP, PAP, CO, CI - Last Documented Arterial Blood Pressure 120/62 - Exam Patient is intubated, sedated on propofol. Also on Keppra 500 mg twice a day. No seizure-like activity noted. - Labs CBC & Chem 7: 06/10/20 03:20 06/10/20 15:30 Labs: Abnormal Lab Results - Last 24 Hours (Table) 06/10/20 06/10/20 06/10/20 Range/Units 03:20 03:20 05:25 Lymphocytes # 0.6 L (1.0-4.8) k/uL ABG pO2 114 H (83-108) mmHg ABG O2 Saturation 98.6 H (94-97) % Potassium 3.4 L (3.5-5.1) mmol/L Chloride 112 H (98-107) mmol/L Glucose 133 H (74-99) mg/dL Total Bilirubin 1.9 H (0.2-1.3) mg/dL AST 45 H (14-36) U/L Total Protein 5.6 L (6.3-8.2) g/dL Albumin 3.2 L (3.5-5.0) g/dL Microbiology - Last 24 Hours (Table) 06/09/20 15:30 Blood Culture - Preliminary Blood No Growth after 24 hours 06/09/20 15:30 Gram Stain - Preliminary Sputum Sputum Culture - Preliminary Assessment and Plan Assessment: * Altered mental status, probable toxic metabolic encephalopathy. * Probable intentional overdose on baclofen (due to family argument) * Acute respiratory failure secondary to status epilepticus, requiring int ubation and mechanical ventilation. * Recurrent seizure, possible status, now resolved. * History of Multiple sclerosis * Morbid obesity * Nonischemic cardiomyopathy. Plan: * Patient at present is intubated, sedated on propofol, therefore examination is limited. No signs of obvious seizure activity. * Continue Keppra 500 mg twice a day. * Await EEG to rule out status epilepticus. * Resume Lamictal and Topamax, but discontinue Ampyra. * Medical management as per IM and ICU. * Spoke to patient's boyfriend Joni, is that there was a family argument and she became upset and took some bunch of pills which he did not know at all which ones she took. He told her to throw up and she did try to throw them up but then she did not feel well, therefore he brought her to the [facility]. He states the patient is not suicidal, it was just result of some family argument that she acted. She has MS, but does not know the name of her neurologist. * We will follow.
[2020-06-10] MEDS: SODIUM CHLORIDE 0.9% 1,000 ML IV SCH (23:43)
[2020-06-11 04:34] LABS: Basophils % (A) 0 %; Eosinophils # (A) 0.2 k/uL (0-0.7); Eosinophils % (A) 3 %; HCT 37.2 % (34.0-46.0); Lymphocytes # (A) 0.7 k/uL (1.0-4.8); Lymphocytes % (A) 12 %; MCH 32.7 pg (25.0-35.0); MCHC 34.8 g/dL (31.0-37.0); MCV 93.9 fL (80.0-100.0); Mean Platelet Volume 7.9; Monocytes # (A) 0.4 k/uL (0-1.0); Monocytes % (A) 6 %; Neutrophils # (A) 4.9 k/uL (1.3-7.7); Neutrophils % (A) 78 %; Platelet Count 172 k/uL (150-450); RBC 3.96 m/uL (3.80-5.40); WBC 6.2 k/uL (3.8-10.6)
[2020-06-11 04:57] LABS: ALT 33 U/L (4-34); AST 67 U/L (14-36); African American GFR (CKD) >90 (>60 ml/min/1.73 sqM); Albumin 3.2 g/dL (3.5-5.0); Alkaline Phosphatase 71 U/L (38-126); Anion Gap 5 mmol/L; Blood Urea Nitrogen 11 mg/dL (7-17); Calcium 8.6 mg/dL (8.4-10.2); Carbon Dioxide 25 mmol/L (22-30); Chloride 109 mmol/L (98-107); Glucose 123 mg/dL (74-99); Non-African American GFR(CKD) >90 (>60 ml/min/1.73 sqM); Potassium 3.6 mmol/L (3.5-5.1); Sodium 139 mmol/L (137-145); Total Bilirubin 1.6 mg/dL (0.2-1.3); Total Protein 5.7 g/dL (6.3-8.2)
[2020-06-11 05:33] LABS: ABG Base Excess 0.9 mmol/L; ABG HCO3 26 mmol/L (21-25); ABG Oxygen Saturation 99.1 % (94-97); ABG PCO2 40 mmHg (35-45); ABG PH 7.41 (7.35-7.45); ABG PO2 128 mmHg (83-108); ABG TCO2 27 mmol/L (19-24); Allen Test Performed? Yes
[2020-06-11] MEDS: LEVOTHYROXINE 75 MCG TAB PO SCH (05:53)
[2020-06-11] MEDS ORDERED: POTASSIUM BICARBONATE/CIT AC 20 MEQ TABLET.EFF NG-TUBE SCH (06:00)
[2020-06-11] MEDS ORDERED: POTASSIUM CHLORIDE ER 20 MEQ TAB.ER PO SCH (06:00)
--- NOTE | 2020-06-11 07:22 | XR ---
EXAMINATION TYPE: XR chest 1V portable DATE OF EXAM: 06/11/2020 COMPARISON: 06/10/2020 HISTORY: SOB, Follow Up FINDINGS: Endotracheal tube is 1.4 cm from the marsha. NG tube is seen coursing into the stomach. Perihilar and basilar infiltrates left greater than right persist. Stable appearance of the cardio-mediastinal structures at this time. Pleural effusion unchanged. IMPRESSION: 1. Stable portable chest. Clinical correlation and follow up until resolution is recommended.
[2020-06-11] MEDS: CLINDAMYCIN 600 MG in DEXTROSE 5% IN WATER 50 ML IVPB SCH ×6 (08:20→23:52)
[2020-06-11] MEDS: TOPIRAMATE 25 MG TAB PO SCH ×2 (08:21→21:23)
[2020-06-11] MEDS: lamoTRIgine 25 MG TAB PO SCH (08:21)
[2020-06-11] MEDS: METOPROLOL SUCCINATE (ER) 25 MG TAB.ER.24H PO SCH (08:21)
[2020-06-11] MEDS: ASPIRIN 81 MG PO SCH (08:21)
[2020-06-11] MEDS: PANTOPRAZOLE 40 MG/10 ML VIAL IVP SCH (08:21)
[2020-06-11] MEDS: ENOXAPARIN 40 MG/0.4 ML SYRINGE SQ SCH (08:22)
[2020-06-11] MEDS: CHLORHEXIDINE GLUCONATE 15 ML CUP MUCOUS MEM SCH (08:22)
--- NOTE | 2020-06-11 11:13 | P.PN ---
Subjective Progress Note Date: 06/11/20 Principal diagnosis: Acute hypoxic respiratory failure, overdose possibly related to baclofen, seizures This is a 60-year-old female supposedly has multiple medical problems including seizure disorder, MS, depression, patient is primarily a patient of Patient presented to the ER at [facility], and she was noted to have altered mental status. While in the ER, patient developed seizure. Patient was intubated, and she was placed on Ativan drip after intubation. CT of the brain showed no acute process. Patient was noted to have normal troponin initially, however follow-up troponin was elevated by 2. Cardiology was consulted, EKG showed minimal ST elevation in lead V2 and V3 and in the lateral leads. Bedside echocardiogram showed severe cardiomyopathy with LV dysfunction of 25-50%, and anterior hypokinesis. The warp scouring vat tender was concerned about possible evolving GA, hence he arrange for the patient to be transferred to [facility], and she underwent cardiac catheterization. noted to have normal coronaries, but extremely reduced ejection fraction and apical hypokinesis likely consistent with decreased to takostubo cardiomyopathy. Patient remained on mechanical ventilation while in the analytical lab technician, after the cardiac catheterization, patient was transferred to the ICU, and I was asked to see her on consultation. Patient is hemodynamically stable, she is sedated, on propofol drip, her ventilator settings are assist control rate of 14 FiO2 of 50% tidal volume is 500 and PEEP of 5. ABG is pending, and chest x-ray is pending. Supposedly the patient had a number of labs done while at [facility], none of them is available to me. There was also a concern that the patient may have overdosed on some of her medications, but the drug screen was basically unremarkable. Patient is on multiple medications for MS, depression, and she is also on methotrexate. Patient was reevaluated today on 06/10/2020, patient remains in the ICU, intubated and mechanically ventilated. She is on assist control rate of 14 tidal volume of 500 FiO2 40% PEEP of 5. I cut down her FiO2 down to 35%. ABG showed a pO2 of 114 pCO2 36 pH of 7.39. Patient is on propofol which I plan to hold and assess mental status as well as possibly assess for potential weaning. This was done, and shortly after the dose went down patient was extremely agitated, biting on the tube, was not appropriate, and she was placed back on pr opofol. Chest x-ray today was reviewed. It showed patchy densities within bilateral lung, very much consistent with the clinical picture of aspiration pneumonia, patient remains on antibiotics empirically for aspiration pneumonia. CBC showed normal WBC count normal hemoglobin normal differential. And normal platelets. Basic metabolic profile is normal except for low potassium of 3.4. Liver enzymes are borderline elevated. Urinalysis is relatively unremarkable except for hematuria, possibly related to catheter insertion. On 06/11/2020 patient seen in follow-up in intensive care unit, she remains sedated and intubated on mechanical ventilator, on assist control mode of ventilation with a rate of 14, tidal volume is 500, FiO2 35% and PEEP of 5, this morning's blood gas has been reviewed showing a pO2 of 128, pCO2 of 40, and pH of 7.41, and that was done on 35% FiO2 and FiO2 had since been dropped to 25%, patient presented on 0.9 normal saline at a rate of 20 ML per hour, Diprivan is a 20 mics per kilo per minute, no other drips, no tube feedings have been started yet with the goal of possible extubation today. Her chest x-ray today shows perihilar basilar infiltrates left greater than right without significant change. Today's labs have been reviewed, white blood cell count is normal at 6.2, hemoglobin is 13, sodium is 139 with potassium is 3.6, chloride is 109, CO2 is 25, B1 is 11 creatinine 0.73. No obvious seizure activity has been noted since admission , neurology is following, EEG is pending, patient is currently on Keppra 500 mg twice daily, in addition to Lamictal and Topamax. She is on empiric antibiotics in the form of clindamycin for possibility of aspiration pneumonia and she was given 1 dose of IV Lasix last night 20 mg, however overall remains in positive fluid balance. Her blood and sputum cultures have been negative thus far. Her urine looks turbid, however urinalysis on admission did not suggest presence of urinary tract infection. Objective - Vital Signs Vital signs: Vital Signs Temp 99.5 F 06/11/20 04:00 Pulse 86 06/11/20 07:00 Resp 14 06/11/20 07:00 BP 111/73 06/11/20 07:00 Pulse Ox 100 06/11/20 07:00 Intake & Output 06/10/20 06/11/20 06/11/20 18:59 06:59 18:59 Intake Total 700 331.405 101.32 Output Total 285 625 10 Balance 415 -293.595 91.32 Weight 135.9 kg Intake: IV 600 200 20 0.9@50 600 200 20 Intake, IV Titration 100 131.405 81.32 Amount propofoL 1,000 mg In 100 131.405 81.32 Empty Bag 1 bag @ Titrate IV .Q0M [facility] Rx#: [id number] Output: Urine 285 625 10 Other: Voiding Method Indwelling Catheter Indwelling Catheter ABP, PAP, CO, CI - Last Documented Arterial Blood Pressure 108/59 - Exam GENERAL EXAM: Today, intubated, 60-year-old white female, on assist control mode of ventilation with FiO2 of 35% and PEEP of 5 comfortable in no apparent distress. HEAD: Normocephalic/atraumatic. EYES: Normal reaction of pupils, equal size. Conjunctiva pink, sclera white. NOSE: Clear with pink turbinates. THROAT: No erythema or exudates. NECK: No masses, no JVD, no thyroid enlargement, no adenopathy. CHEST: No chest wall deformity. Symmetrical expansion. LUNGS: Equal air entry with no crackles, wheeze, rhonchi or dullness. CVS: Regular rate and rhythm, normal S1 and S2, no gallops, no murmurs, no rubs ABDOMEN: Soft, nontender. No hepatosplenomegaly, normal bowel sounds, no guarding or rigidity. EXTREMITIES: No clubbing, no edema, no cyanosis, 2+ pulses and upper and lower extremities. MUSCULOSKELETAL: Muscle strength and tone normal. SPINE: No scoliosis or deformity SKIN: No rashes CENTRAL NERVOUS SYSTEM: Sedated, intubated. No focal deficits, tone is normal in all 4 extremities. - Labs CBC & Chem 7: 06/11/20 04:25 06/11/20 04:25 Labs: Abnormal Lab Results - Last 24 Hours (Table) 06/11/20 06/11/20 06/11/20 Range/Units 04:25 04:25 05:27 Lymphocytes # 0.7 L (1.0-4.8) k/uL ABG pO2 128 H (83-108) mmHg ABG HCO3 26 H (21-25) mmol/L ABG Total CO2 27 H (19-24) mmol/L ABG O2 Saturation 99.1 H (94-97) % Chloride 109 H (98-107) mmol/L Glucose 123 H (74-99) mg/dL Total Bilirubin 1.6 H (0.2-1.3) mg/dL AST 67 H (14-36) U/L Total Protein 5.7 L (6.3-8.2) g/dL Albumin 3.2 L (3.5-5.0) g/dL Microbiology - Last 24 Hours (Table) 06/09/20 15:30 Gram Stain - Final Sputum Sputum Culture - Final 06/09/20 15:30 Blood Culture - Preliminary Blood No Growth after 24 hours Assessment and Plan Plan: Assessment: #1. Acute hypoxic respiratory failure related to status epilepticus requiring intubation and mechanical ventilation. Patient was intubated on 06/08/[address] [facility] emergency department and was transferred to the [facility] on 06/09/2020. She has remained intubated since #2. Possible aspiration pneumonia and patient is empirically covered with clindamycin #3. Nonischemic cardiomyopathy with possibility of a skilled nursing cardiomyopathy #4. Possible intentional overdose, related to baclofen #5. History of MS #6. History of depression #7. Morbid obesity #8. History of depression Plan: We'll give the patient and additional dose of Lasix 40 mg once Todays chest x-ray has been reviewed Decrease FiO2 down to 25% Continue clindamycin No seizure activity Neurology is following Hemodynamically stable Proceed with a daily traction of sedation Spontaneous breathing trial with her support of 5 and CPAP of 5 once the patient wakes up If patient does not extubated today we'll have to start tube feedings GI and DVT prophylaxis We'll continue to follow I performed a history & physical examination of the patient and discussed their management with my nurse practitioner, Deepti Randhawa. I reviewed the nurse practitioner's note and agree with the documented findings and plan of care. Lung sounds are positive for diminished breath sounds. The findings and the impression was discussed with the patient. I attest to the documentation by the nurse practitioner. Time with Patient: Greater than 30
[2020-06-11 12:23] LABS: ABG Base Excess 0.9 mmol/L; ABG HCO3 25 mmol/L (21-25); ABG Oxygen Saturation 96.5 % (94-97); ABG PCO2 38 mmHg (35-45); ABG PH 7.43 (7.35-7.45); ABG PO2 82 mmHg (83-108); ABG TCO2 26 mmol/L (19-24)
[2020-06-11 12:25] LABS: Allen Test Performed? no
[2020-06-11] MEDS: levETIRAcetam IV 500 MG in SODIUM CHLORIDE 0.9% 100 ML IVPB SCH ×2 (12:55→23:52)
--- NOTE | 2020-06-11 13:47 | P.PN ---
Subjective Progress Note Date: 06/11/20 Principal diagnosis: This is a 60-year-old female was admitted with the status epilepticus, respiratory failure requiring intubation and possible apical ballooning syndrome. Patient had a cardiac catheterization and found to have an ejection fraction about 35-40% but no evidence of any obstructive coronary artery disease. She did have abnormal troponin values. She still intubated and sedated. She seemed to be fluid overloaded and being treated with Lasix. Chest x-ray did not show any major changes. She is also being treated with possible pneumonia. At this point we'll continue with current cardiac management and will follow Objective - Vital Signs Vital signs: Vital Signs Temp 98.6 F 06/11/20 12:00 Pulse 74 06/11/20 12:00 Resp 28 H 06/11/20 12:00 BP 112/71 06/11/20 12:00 Pulse Ox 92 L 06/11/20 12:00 Intake & Output 06/10/20 06/11/20 06/11/20 18:59 06:59 18:59 Intake Total 700 331.405 154.394 Output Total 285 625 10 Balance 415 -293.595 144.394 Weight 135.9 kg Intake: IV 600 200 20 0.9@50 600 200 20 Intake, IV Titration 100 131.405 134.394 Amount propofoL 1,000 mg In 100 131.405 134.394 Empty Bag 1 bag @ Titrate IV .Q0M [facility] Rx#: [id number] Output: Urine 285 625 10 Other: Voiding Method Indwelling Catheter Indwelling Catheter Indwelling Catheter ABP, PAP, CO, CI - Last Documented Arterial Blood Pressure 123/63 - Exam GENERAL EXAM: Patient is intubated and sedated HEENT: Normocephalic. Normal reaction of pupils, equal size, normal range of extraocular motion. No erythema or exudates in the throat. NECK: No masses, no nuchal rigidity. CHEST: No chest wall deformity. LUNGS: Diminished Breath sounds HEART: S1 and S2 normal ABDOMEN: No hepatosplenomegaly, normal bowel sounds, no guarding or rigidity. SKIN: No rashes CENTRAL NERVOUS SYSTEM: Not examined EXTREMITIES: No cyanosis, clubbing or edema. - Labs CBC & Chem 7: 06/11/20 04:25 06/11/20 04:25 Labs: Abnormal Lab Results - Last 24 Hours (Table) 04/06/11/20 06/11/20 Range/Units 04:25 04:25 05:27 Lymphocytes # 0.7 L (1.0-4.8) k/uL ABG pO2 128 H (83-108) mmHg ABG HCO3 26 H (21-25) mmol/L ABG Total CO2 27 H (19-24) mmol/L ABG O2 Saturation 99.1 H (94-97) % Chloride 109 H (98-107) mmol/L Glucose 123 H (74-99) mg/dL Total Bilirubin 1.6 H (0.2-1.3) mg/dL AST 67 H (14-36) U/L Total Protein 5.7 L (6.3-8.2) g/dL Albumin 3.2 L (3.5-5.0) g/dL 06/11/20 Range/Units 12:21 Lymphocytes # (1.0-4.8) k/uL ABG pO2 82 L (83-108) mmHg ABG HCO3 (21-25) mmol/L ABG Total CO2 26 H (19-24) mmol/L ABG O2 Saturation (94-97) % Chloride (98-107) mmol/L Glucose (74-99) mg/dL Total Bilirubin (0.2-1.3) mg/dL AST (14-36) U/L Total Protein (6.3-8.2) g/dL Albumin (3.5-5.0) g/dL Microbiology - Last 24 Hours (Table) 06/09/20 15:30 Gram Stain - Final Sputum Sputum Culture - Final 06/09/20 15:30 Blood Culture - Preliminary Blood No Growth after 24 hours Assessment and Plan (1) Apical ballooning syndrome Current Visit: Yes Status: Acute Code(s): I51.81 - TAKOTSUBO SYNDROME SNOMED Code(s): 127983177 (2) Acute respiratory failure Current Visit: Yes Status: Acute Code(s): J96.00 - ACUTE RESPIRATORY FAILURE, UNSP W HYPOXIA OR HYPERCAPNIA SNOMED Code(s): 06266762 (3) Seizure disorder Current Visit: Yes Status: Acute Code(s): G40.909 - EPILEPSY, UNSP, NOT INTRACTABLE, WITHOUT STATUS EPILEPTICUS SNOMED Code(s): 597933578 (4) Drug overdose Current Visit: Yes Status: Acute Code(s): T50.901A - POISONING BY UNSP DRUG/MEDS/BIOL SUBST, ACCIDENTAL, INIT SNOMED Code(s): 64180190 Plan: Anterior current medical therapy. Beta sveta as tolerated. Continue rest of the management. We'll follow
--- NOTE | 2020-06-11 13:56 | P.PN ---
Progress Note - Text Progress Note Date: 06/11/20 Psychiatry attempted to evaluate the patient shortly after the patient was extubated. Currently, the patient is conscious and is able to respond to questioning but appears to have a difficult time remaining focused, is difficult to comprehend due to the nature of the extubation, and is unable to appropriately participate in the psychiatric interview. Currently there is no permission allowed to speak with her daughter. Psychiatry will reattempt to evaluate the patient tomorrow.
[2020-06-11] MEDS: FUROSEMIDE 10 MG/ML 4 ML VIAL IV SCH (15:30)
[2020-06-11] MEDS: SODIUM CHLORIDE 0.9% 1,000 ML IV SCH (21:26)
--- NOTE | 2020-06-11 23:38 | P.PN ---
Subjective Progress Note Date: 06/11/20 Patient was seen for a follow-up. Patient has not had any more seizures. She is extubated. Patient denies any history of seizures. Offers no complaints. Patient admits to seeing a neurologist periodically. Patient not able to provide detailed history because of recent extubation and hoarse raspy voice. Objective - Vital Signs Vital signs: Vital Signs Temp 98.3 F 06/11/20 20:00 Pulse 79 06/11/20 23:00 Resp 25 H 06/11/20 23:00 BP 125/62 06/11/20 23:00 Pulse Ox 98 06/11/20 23:00 Intake & Output 06/11/20 06/11/20 06/12/20 06:59 18:59 06:59 Intake Total 331.405 484.394 46 Output Total 625 490 360 Balance -293.595 -5.606 -314 Weight 135.9 kg Intake: IV 200 350 46 0.9@20 200 250 40 Clindamycin 600 mg In 100 Dextrose 5% in Water 50 ml @ 50 mls/hr IVPB Q8HR [facility] Rx#:[id number] violette 6 Intake, IV Titration 131.405 134.394 Amount propofoL 1,000 mg In 131.405 134.394 Empty Bag 1 bag @ Titrate IV .Q0M [facility] Rx#: [id number] Output: Urine 625 490 360 Other: Voiding Method Indwelling Catheter Indwelling Catheter Indwelling Catheter ABP, PAP, CO, CI - Last Documented Arterial Blood Pressure 118/63 - Exam Patient is alert and awake, in no distress. Patient was just recently extubated. Patient is slow in mentation. Appears very pleasant. Speech is hoarse from recent extubation. Slightly hoarse raspy voice. Patient appears cognitively intact. Patient states that Keppra 500 mg twice a day. No seizure- like activity noted. Patient's face is symmetric. Visual baeza appear full. Package Collector is equal. Ankles are normal. - Labs CBC & Chem 7: 06/12/20 04:00 06/12/20 04:00 Labs: Abnormal Lab Results - Last 24 Hours (Table) 06/11/20 06/11/20 06/11/20 Range/Units 04:25 04:25 05:27 Lymphocytes # 0.7 L (1.0-4.8) k/uL ABG pO2 128 H (83-108) mmHg ABG HCO3 26 H (21-25) mmol/L ABG Total CO2 27 H (19-24) mmol/L ABG O2 Saturation 99.1 H (94-97) % Chloride 109 H (98-107) mmol/L Glucose 123 H (74-99) mg/dL Total Bilirubin 1.6 H (0.2-1.3) mg/dL AST 67 H (14-36) U/L Total Protein 5.7 L (6.3-8.2) g/dL Albumin 3.2 L (3.5-5.0) g/dL 06/11/20 Range/Units 12:21 Lymphocytes # (1.0-4.8) k/uL ABG pO2 82 L (83-108) mmHg ABG HCO3 (21-25) mmol/L ABG Total CO2 26 H (19-24) mmol/L ABG O2 Saturation (94-97) % Chloride (98-107) mmol/L Glucose (74-99) mg/dL Total Bilirubin (0.2-1.3) mg/dL AST (14-36) U/L Total Protein (6.3-8.2) g/dL Albumin (3.5-5.0) g/dL Microbiology - Last 24 Hours (Table) 06/09/20 15:30 Blood Culture - Preliminary Blood No Growth after 48 hours 06/09/20 15:30 Gram Stain - Final Sputum Sputum Culture - Final Assessment and Plan Assessment: * Altered mental status, probable toxic metabolic encephalopathy. * Probable intentional overdose on baclofen (due to family argument) * Acute respiratory failure secondary to status epilepticus, requiring in tubation and mechanical ventilation. Status post extubation today. * Recurrent seizure, possible status, now resolved. Patient denies any previous history of seizures. * History of Multiple sclerosis * Nonischemic cardiomyopathy. Plan: * Patient is extubated. Her mentation appears fairly normal although slightly slow mentation due to recent extubation. * Continue Keppra 500 mg twice a day. May discontinue Keppra in the next upper days if remains seizure free and EEG normal. * EEG was performed, which revealed mildly abnormal EEG due to slightly disorganized background, with some fast and slow frequency activity, suggestive of mild encephalopathy and possible medication effect. No epileptiform activity was seen. * Resume Lamictal and Topamax, but discontinue Ampyra. * Medical management as per IM and ICU. * Spoke to patient's boyfriend Joni, is that there was a family argument and she became upset and took some bunch of pills which he did not know at all which ones she took. He told her to throw up and she did try to throw them up but then she did not feel well, therefore he brought her to the [facility]. He states the patient is not suicidal, it was just result of some family argument that she acted. She has MS, but does not know the name of her neurologist.
--- NOTE | 2020-06-12 05:02 | EEG ---
ELECTROENCEPHALOGRAM REPORT DATE OF SERVICE: 06/11/2020. This is a 60-year-old female with a history of MS, has overdose on baclofen. The patient has seizures with acute mental status change. This study is performed to evaluate for any epileptiform activity. EEG FINDINGS: This is a 21 channel routine EEG recording in a patient utilizing 10/20 international system with referential and bipolar montages. Background consists of well-developed, fairly well regulated, mixed frequencies of moderate voltage fast frequency beta, mixed with some theta activity. The background is slightly disorganized. Photic driving response was not seen. Stage 2 sleep was seen with presence of some sleep spindles. No focal or generalized epileptiform activity was seen. IMPRESSION: This is mildly abnormal EEG due to slightly disorganized background, with some fast and slow frequency activity, suggestive of mild encephalopathy and possible medication effect. No epileptiform activity was seen. MMJOLIEL / IJTess: [id number] /
[2020-06-12 05:20] LABS: Basophils % (A) 0 %; Eosinophils # (A) 0.1 k/uL (0-0.7); Eosinophils % (A) 2 %; HCT 39.3 % (34.0-46.0); HGB 12.9 gm/dL (11.4-16.0); Lymphocytes # (A) 0.6 k/uL (1.0-4.8); Lymphocytes % (A) 10 %; MCH 30.8 pg (25.0-35.0); MCHC 32.7 g/dL (31.0-37.0); MCV 94.4 fL (80.0-100.0); Mean Platelet Volume 8.4; Monocytes # (A) 0.3 k/uL (0-1.0); Monocytes % (A) 5 %; Neutrophils # (A) 4.6 k/uL (1.3-7.7); Neutrophils % (A) 82 %; Platelet Count 189 k/uL (150-450); RBC 4.17 m/uL (3.80-5.40); RDW 14.3 % (11.5-15.5); WBC 5.6 k/uL (3.8-10.6)
[2020-06-12 05:25] LABS: ALT 34 U/L (4-34); AST 75 U/L (14-36); African American GFR (CKD) >90 (>60 ml/min/1.73 sqM); Albumin 3.3 g/dL (3.5-5.0); Alkaline Phosphatase 72 U/L (38-126); Anion Gap 6 mmol/L; Blood Urea Nitrogen 15 mg/dL (7-17); Calcium 8.8 mg/dL (8.4-10.2); Carbon Dioxide 27 mmol/L (22-30); Chloride 106 mmol/L (98-107); Glucose 128 mg/dL (74-99); Non-African American GFR(CKD) >90 (>60 ml/min/1.73 sqM); Potassium 3.4 mmol/L (3.5-5.1); Sodium 139 mmol/L (137-145); Total Bilirubin 1.5 mg/dL (0.2-1.3); Total Protein 5.8 g/dL (6.3-8.2)
--- NOTE | 2020-06-12 06:11 | XR ---
EXAMINATION TYPE: XR chest 1V portable DATE OF EXAM: 06/12/2020 CLINICAL HISTORY: Difficulty breathing progress study. TECHNIQUE: Single AP portable semiupright view of the chest is obtained. COMPARISON: Chest x-ray from one, 2, and 3 days earlier FINDINGS: Interval extubation with removal of endotracheal and orogastric tubes. Slight worsening le ft lower lung opacity with persistent elevated left hemidiaphragm. Right lung shows increasing medial basilar opacity. Cardiac silhouette size is stable and mildly enlarged. Osseous structures remain in tact. IMPRESSION: Worsening left greater than right bibasilar acute atelectasis and/or infiltrate. Worsenin g small to tiny left pleural effusion. Persistent mild cardiomegaly and elevated left hemidiaphragm n oted.
[2020-06-12] MEDS: LEVOTHYROXINE 75 MCG TAB PO SCH (06:20)
[2020-06-12] MEDS: POTASSIUM CHLORIDE 10 MEQ in WATER FOR INJECTION 1 100ML.BAG IVPB SCH ×4 (06:33→12:11)
[2020-06-12] MEDS: ENOXAPARIN 40 MG/0.4 ML SYRINGE SQ SCH (08:33)
[2020-06-12] MEDS: FUROSEMIDE 10 MG/ML 4 ML VIAL IV SCH (08:33)
[2020-06-12] MEDS: PANTOPRAZOLE 40 MG/10 ML VIAL IVP SCH (08:34)
[2020-06-12] MEDS: TOPIRAMATE 25 MG TAB PO SCH ×2 (08:42→20:59)
[2020-06-12] MEDS: ASPIRIN 81 MG PO SCH (08:42)
[2020-06-12] MEDS: lamoTRIgine 25 MG TAB PO SCH (08:42)
[2020-06-12] MEDS: METOPROLOL SUCCINATE (ER) 25 MG TAB.ER.24H PO SCH (08:42)
[2020-06-12] MEDS: CLINDAMYCIN 600 MG in DEXTROSE 5% IN WATER 50 ML IVPB SCH ×4 (09:03→20:30)
--- NOTE | 2020-06-12 10:10 | P.PN ---
Subjective Progress Note Date: 06/12/20 Principal diagnosis: Acute hypoxic respiratory failure, overdose possibly related to baclofen, seizures This is a 60-year-old female supposedly has multiple medical problems including seizure disorder, MS, depression, patient is primarily a patient of Patient presented to the ER at [facility], and she was noted to have altered mental status. While in the ER, patient developed seizure. Patient was intubated, and she was placed on Ativan drip after intubation. CT of the brain showed no acute process. Patient was noted to have normal troponin initially, however follow-up troponin was elevated by 2. Cardiology was consulted, EKG showed minimal ST elevation in lead V2 and V3 and in the lateral leads. Bedside echocardiogram showed severe cardiomyopathy with LV dysfunction of 25-50%, and anterior hypokinesis. The editor continuity and script was concerned about possible evolving LA, hence he arrange for the patient to be transferred to [facility], and she underwent cardiac catheterization. noted to have normal coronaries, but extremely reduced ejection fraction and apical hypokinesis likely consistent with decreased to takostubo cardiomyopathy. 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 Patient is hemodynamically stable, she is sedated, on propofol drip, her ventilator settings are assist control rate of 14 FiO2 of 50% tidal volume is 500 and PEEP of 5. ABG is pending, and chest x-ray is pending. Supposedly the patient had a number of labs done while at [facility], none of them is available to me. There was also a concern that the patient may have overdosed on some of her medications, but the drug screen was basically unremarkable. Patient is on multiple medications for MS, depression, and she is also on methotrexate. Patient was reevaluated today on 06/10/2020, patient remains in the ICU, intubated and mechanically ventilated. She is on assist control rate of 14 tidal volume of 500 FiO2 40% PEEP of 5. I cut down her FiO2 down to 35%. ABG showed a pO2 of 114 pCO2 36 pH of 7.39. Patient is on propofol which I plan to hold and assess mental status as well as possibly assess for potential weaning. This was done, and shortly after the dose went down patient was extremely agitated, biting on the tube, was not appropriate, and she was placed back on pr opofol. Chest x-ray today was reviewed. It showed patchy densities within bilateral lung, very much consistent with the clinical picture of aspiration pneumonia, patient remains on antibiotics empirically for aspiration pneumonia. CBC showed normal WBC count normal hemoglobin normal differential. And normal platelets. Basic metabolic profile is normal except for low potassium of 3.4. Liver enzymes are borderline elevated. Urinalysis is relatively unremarkable except for hematuria, possibly related to catheter insertion. On 06/11/2020 patient seen in follow-up in intensive care unit, she remains sedated and intubated on mechanical ventilator, on assist control mode of ventilation with a rate of 14, tidal volume is 500, FiO2 35% and PEEP of 5, this morning's blood gas has been reviewed showing a pO2 of 128, pCO2 of 40, and pH of 7.41, and that was done on 35% FiO2 and FiO2 had since been dropped to 25%, patient presented on 0.9 normal saline at a rate of 20 ML per hour, Diprivan is a 20 mics per kilo per minute, no other drips, no tube feedings have been started yet with the goal of possible extubation today. Her chest x-ray today shows perihilar basilar infiltrates left greater than right without significant change. Today's labs have been reviewed, white blood cell count is normal at 6.2, hemoglobin is 13, sodium is 139 with potassium is 3.6, chloride is 109, CO2 is 25, B1 is 11 creatinine 0.73. No obvious seizure activity has been noted since admission , neurology is following, EEG is pending, patient is currently on Keppra 500 mg twice daily, in addition to Lamictal and Topamax. She is on empiric antibiotics in the form of clindamycin for possibility of aspiration pneumonia and she was given 1 dose of IV Lasix last night 20 mg, however overall remains in positive fluid balance. Her blood and sputum cultures have been negative thus far. Her urine looks turbid, however urinalysis on admission did not suggest presence of urinary tract infection. On 06/12/2020 patient seen in follow-up in intensive care unit, she was successfully weaned and extubated from mechanical ventilator yesterday on 06/11/2020, she is tolerating extubation quite well so far, she is awake and alert, she was confused last night, doing better today, no agitation, she is currently breathing comfortably, she is on 2 L of oxygen pulse ox 100%, occasional harsh cough, nonproductive, no comments of chest pain, afebrile, hemodynamically she is stable. She remains on clindamycin for empiric and pneumatic coverage, no seizure activity was noted, she remains on a combination of Lamictal, Keppra and Topamax, neurology is following, she is on Lovenox for GI prophylaxis, and we started her on daily dose of Lasix 40 mg daily and she has produced 1.1 L in the urine output and she is in -230 mL fluid balance over the last 24 hours, today's labs have been reviewed showing CBC which is unremarkable with the exception a lymphopenia with lymphocyte count of 0.6, sodium of 139, potassium is 3.4 which is being replaced per protocol, the rest of electrolytes and renal profile were unremarkable, AST of 75, ALT and alk phos were within normal limits, sputum and blood cultures have been negative thus far, today's chest x-ray was a worsening left greater than right basilar atelectasis versus infiltrate. Small to tiny left pleural effusion. Persistent mild cardiomegaly and elevated left hemidiaphragm. Objective - Vital Signs Vital signs: Vital Signs Temp 98.0 F 06/12/20 08:00 Pulse 88 06/12/20 09:00 Resp 12 06/12/20 09:00 BP 136/69 06/12/20 04:00 Pulse Ox 99 06/12/20 09:00 Intake & Output 06/11/20 06/12/20 06/12/20 18:59 06:59 18:59 Intake Total 484.394 383 69 Output Total 490 610 520 Balance -5.606 -227 -451 Weight 133.5 kg Intake: IV 350 383 69 0.9@20 250 200 60 Clindamycin 600 mg In 100 50 Dextrose 5% in Water 50 ml @ 50 mls/hr IVPB Q8HR [facility] Rx#:[id number] violette 33 9 levETIRAcetam IV 500 mg 100 In Sodium Chloride 0.9% 100 ml @ 400 mls/hr IVPB Q12HR@0000,1200 [facility] Rx#: [id number] Intake, IV Titration 134.394 Amount propofoL 1,000 mg In 134.394 Empty Bag 1 bag @ Titrate IV .Q0M [facility] Rx#: [id number] Output: Urine 490 610 520 Other: Voiding Method Indwelling Catheter Indwelling Catheter Indwelling Catheter ABP, PAP, CO, CI - Last Documented Arterial Blood Pressure 132/80 - Exam GENERAL EXAM: Pleasant awake and alert 60-year-old white female, on 2 L of oxygen with a pulse ox of 100% comfortable in no apparent distress. HEAD: Normocephalic/atraumatic. EYES: Normal reaction of pupils, equal size. Conjunctiva pink, sclera white. NOSE: Clear with pink turbinates. THROAT: No erythema or exudates. NECK: No masses, no JVD, no thyroid enlargement, no adenopathy. CHEST: No chest wall deformity. Symmetrical expansion. LUNGS: Equal air entry with no crackles, wheeze, rhonchi or dullness. CVS: Regular rate and rhythm, normal S1 and S2, no gallops, no murmurs, no rubs ABDOMEN: Soft, nontender. No hepatosplenomegaly, normal bowel sounds, no guarding or rigidity. EXTREMITIES: No clubbing, no edema, no cyanosis, 2+ pulses and upper and lower extremities. MUSCULOSKELETAL: Muscle strength and tone normal. SPINE: No scoliosis or deformity SKIN: No rashes CENTRAL NERVOUS SYSTEM: Awake and alert, a bit confused. No focal deficits, tone is normal in all 4 extremities. - Labs CBC & Chem 7: 06/12/20 04:00 06/12/20 04:00 Labs: Abnormal Lab Results - Last 24 Hours (Table) 06/11/20 06/12/20 06/12/20 Range/Units 12:21 04:00 04:00 Lymphocytes # 0.6 L (1.0-4.8) k/uL ABG pO2 82 L (83-108) mmHg ABG Total CO2 26 H (19-24) mmol/L Potassium 3.4 L (3.5-5.1) mmol/L Glucose 128 H (74-99) mg/dL Total Bilirubin 1.5 H (0.2-1.3) mg/dL AST 75 H (14-36) U/L Total Protein 5.8 L (6.3-8.2) g/dL Albumin 3.3 L (3.5-5.0) g/dL Microbiology - Last 24 Hours (Table) 06/09/20 15:30 Blood Culture - Preliminary Blood No Growth after 48 hours 06/09/20 15:30 Gram Stain - Final Sputum Sputum Culture - Final Assessment and Plan Plan: Assessment: #1. Acute hypoxic respiratory failure related to status epilepticus requiring intubation and mechanical ventilation. Patient was intubated on 06/08/2020 at the [facility] emergency department and was transferred to the [facility] on 06/09/2020. Extubated on 06/11/2020 #2. Possible aspiration pneumonia and patient is empirically covered with clindamycin #3. Nonischemic cardiomyopathy with possibility of a halfway cardiomyopathy #4. Possible intentional overdose, related to baclofen #5. History of MS #6. History of depression #7. Morbid obesity #8. History of depression Plan: Todays chest x-ray has been reviewed Continue with IV Lasix for another day Continue weaning FiO2 Provide incentive spirometer Patient was successfully weaned and extubated on 06/11/2020 and tolerating extubation well so far Continue clindamycin No seizure activity, PEG has been reviewed Neurology is following Hemodynamically stable GI and DVT prophylaxis Stable to transfer out of intensive care unit to [facility] care today We'll continue to follow I performed a history & physical examination of the patient and discussed their management with my nurse practitioner, Deepti Randhawa. I reviewed the nurse practitioner's note and agree with the documented findings and plan of care. Lung sounds are positive for diminished breath sounds. The findings and the impression was discussed with the patient. I attest to the documentation by the nurse practitioner. Time with Patient: Greater than 30
--- NOTE | 2020-06-12 11:42 | P.CN ---
Psychiatric Consult - . Consult date: 06/12/20 Consult:: IDENTIFYING DATA: This patient is a , on disability, 60-year-old female who was admitted for intentional overdose HISTORY OF PRESENT ILLNESS: The patient presented to the hospital for 06/09/20 who was transferred from a current [facility] for cardiac catheterization and bilateral coronary angiography. The patient had undergone coronary angiography and the current [facility] and shortly after appears to have 2 seizures in the emergency department. Patient was intubated and transferred to the ICU. The patient was found to have decreased cardiac activity on the echocardiogram and the patient was transferred to [facility] for possible intervention with cardiac cath. Cardiac catheterization was completed which showed normal coronary arteries and left ventriculogram showed mildly improved ejection fraction 35-40% with apical hypokinesis consistent with Takatsubo cardiomyopathy. Psychiatry has been consulted for evaluation and management of intentional overdose. Initially, the patient reported that she overdosed on baclofen in order to manage her multiple sclerosis but when discussing with this provider, the patient reports that she was in an argument with her partner Joni and states "He was supposed to knock the pills out of my hand but he didn't." The patient states that she has been feeling increasingly stressed and depressed. She reports that she lost her mother's past April and more recently this past Thursday he had to put her service dog to sleep. She does report significant symptoms depression including crying every day, low energy, sleeping too much, too little appetite, and feelings of hopelessness and helplessness. She vehemently denies any current or prior suicide attempts. She denies any homicidal ideation, intention, and/or plan. The patient is not reporting any significant history of psychosis. She reports auditory or visual hallucinations. She denies any paranoia or other delusions. The patient does report that she has been previously diagnosed with manic depression. She is unable to provide any clear history of any manic symptoms. PAST PSYCHIATRIC HISTORY: Patient has a a history of "manic depression." Review of her home psychiatric medications include trazodone, Lamictal, Topamax, and Cymbalta. Patient denies any previous psychiatric hospitalizations. Patient denies any psychiatric outpatient follow-up. Patient denies any history of suicide attempts in the past. PAST MEDICAL HISTORY: Past Medical History: Coronary Artery Disease (CAD), Chest Pain / Angina, Heart Failure, COPD, Eye Disorder, Liver Disease, Respiratory Disorder Additional Past Medical History / Comment(s): HIV, IV drug abuse, ETOH (unsure last drink), Multiple sclerosis, VA, heart failure, possibe unknown cancer, blind right eye. swelling bilateral lower extremities, anxiety, and depression. Information provided by daughter, Candelaria Amos History of Any Multi-Drug Resistant Organisms: None Reported Past Surgical History: Cholecystectomy, Heart Catheterization, Hysterectomy Past Psychological History: Anxiety, Depression Smoking Status: Former smoker Past Alcohol Use History: Occasional Past Drug Use History: IV Drug Use ALLERGIES: Penicillins CHEMICAL DEPENDENCY HISTORY: Patient is currently denying any tobacco, alcohol, marijuana, illicit drug use. The patient does have a history of IV drug use in the past. FAMILY PSYCHIATRIC/SUBSTANCE USE HISTORY: Unable to obtain. SOCIAL HISTORY: Patient was born and raised in [place]. The patient is currently for the last 23 years. She has been with her partner Joni on and off for the past 2 years. She has 1 daughter. She reports that she completed college. She receives Social Security. MENTAL STATUS EXAM: General Appearance: Patient appears to be stated age is alert, pleasant, and cooperative. Patient appears to be disheveled, dressed in hospital gown, and is wearing a surgical mask due to Covid precautions. Good eye contact. Behavior: Patient is calmly lying in bed without any agitated behavior. Speech: Patient's speech is fluent and nonpressured. Speech is low in volume, raspy, spontaneous. Mood/Affect: Patient reports their mood is "depressed", affect is congruent, remorseful. Suicidality/Homicidality: Patient denies having any suicidal or homicidal ideation intent or plan. Perceptions: Patient denies any visual hallucinations and denies any auditory hallucinations Though content/process: There is no evidence of any delusional thought content and thought process is linear and goal-directed. Memory and concentration: AOX3, grossly intact for the purposes of this session. Can spell "WORLD" backwards Judgment and insight: Poor Vital Signs Temp 98.0 F 06/12/20 08:00 Pulse 89 06/12/20 10:00 Resp 18 06/12/20 10:00 BP 136/69 06/12/20 04:00 Pulse Ox 100 06/12/20 10:00 Intake & Output 06/11/20 06/12/2021 18:59 06:59 18:59 Intake Total 484.394 383 242 Output Total 049 720 4017 Balance -5.129 -794 -0823 Weight 133.5 kg Intake: IV 350 383 142 0.9@20 250 200 80 Clindamycin 600 mg In 100 50 50 Dextrose 5% in Water 50 ml @ 50 mls/hr IVPB Q8HR [facility] Rx#:[id number] violette 33 12 levETIRAcetam IV 500 mg 100 In Sodium Chloride 0.9% 100 ml @ 400 mls/hr IVPB Q12HR@0000,1200 [facility] Rx#: [id number] Intake, IV Titration 134.394 100 Amount Potassium Chloride 10 meq 100 In Water For Injection 1 100ml.bag @ 100 mls/hr IVPB Q1HR [facility] Rx#: [id number] propofoL 1,000 mg In 134.394 Empty Bag 1 bag @ Titrate IV .Q0M [facility] Rx#: [id number] Output: Urine 300 586 6454 Other: Voiding Method Indwelling Catheter Indwelling Catheter Indwelling Catheter ABP, PAP, CO, CI - Last Documented Arterial Blood Pressure 126/63 IMPRESSIONS: Major depressive disorder recurrent, severe Acute hypoxic respiratory failure Nonischemic cardiomyopathy History of MS Morbid obesity PLAN: -At this time patient DOES meet criteria for inpatient psychiatric admission. 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 Ok to continue Lamictal 50 mg by mouth daily. -Continue 1:1 sitter for safety -Cannot leave AMA at this time. Patient will need a petition and certification if attempting to leave AMA. -Will continue to follow along -When medically stable, patient is eligible for transfer to a psych bed when available. 06/12/20 11:23
[2020-06-12] MEDS: levETIRAcetam IV 500 MG in SODIUM CHLORIDE 0.9% 100 ML IVPB SCH (12:11)
--- NOTE | 2020-06-12 14:34 | P.PN ---
Subjective Progress Note Date: 06/12/20 I'm seeing the patient for the first time for neurological management. Please refer to Dr. Simmons's note for further details of patient's neurological history as well as knowledge workup. Per the patient's sister she's doing better and she has not had any seizures. Per the patient's she overdosed on baclofen since she was trying to make appointment to her boyfriend after getting into argument. She stated that she has history of multiple sclerosis and that she has a broken neck by broken bilateral knees. Objective - Vital Signs Vital signs: Vital Signs Temp 97.9 F 06/12/20 12:00 Pulse 93 06/12/20 12:00 Resp 24 06/12/20 12:00 BP 136/69 06/12/20 04:00 Pulse Ox 97 06/12/20 12:00 Intake & Output 06/11/20 06/12/20 06/12/20 18:59 06:59 18:59 Intake Total 484.394 383 705 Output Total 956 130 7115 Balance -5.606 -227 -1200 Weight 133.5 kg Intake: IV 350 383 265 0.9@20 250 200 100 Clindamycin 600 mg In 100 50 50 Dextrose 5% in Water 50 ml @ 50 mls/hr IVPB Q8HR [facility] Rx#:[id number] violette 33 15 levETIRAcetam IV 500 mg 100 100 In Sodium Chloride 0.9% 100 ml @ 400 mls/hr IVPB Q12HR@0000,1200 [facility] Rx#: [id number] Intake, IV Titration 134.394 200 Amount Potassium Chloride 10 meq 200 In Water For Injection 1 100ml.bag @ 100 mls/hr IVPB Q1HR [facility] Rx#: [id number] propofoL 1,000 mg In 134.394 Empty Bag 1 bag @ Titrate IV .Q0M [facility] Rx#: [id number] Oral 240 Output: Urine 189 590 2543 Other: Voiding Method Indwelling Catheter Indwelling Catheter Indwelling Catheter ABP, PAP, CO, CI - Last Documented Arterial Blood Pressure 114/58 - Exam GENERAL: The patient is lying in bed and is not in acute distress. NEUROLOGICAL: Higher mental function: The patient is awake, alert, oriented to self, place and time. Patient is following commands. No aphasia and no neglect. Cranial nerves: The pupils are round, equal and reactive to light and accommodation. Visual baeza are full to confrontation throughout. Extraocular movement is intact no nystagmus is noted. Facial sensation is normal to touch throughout. The facial strength is normal throughout. HTongue is midline and moved [id number] without any difficulty. No dysarthria is noted. Motor: Gait is deferred. The strength is 4+ over the left upper extremity (old per patient). Bilteral hand pick up are 5/5. Otherwise 5/5 over the right upper extremity. Bilateral lowers are limited because of patient cooperation but had 2-3 proximally and 4+ distally bilaterally. Cerebellum: Normal finger to nose heel to chin bilaterally. Sensation: Sensation is normal to touch throughout. - Labs CBC & Chem 7: 06/12/20 04:00 06/12/20 04:00 Labs: Abnormal Lab Results - Last 24 Hours (Table) 06/12/20 06/12/20 Range/Units 04:00 04:00 Lymphocytes # 0.6 L (1.0-4.8) k/uL Potassium 3.4 L (3.5-5.1) mmol/L Glucose 128 H (74-99) mg/dL Total Bilirubin 1.5 H (0.2-1.3) mg/dL AST 75 H (14-36) U/L Total Protein 5.8 L (6.3-8.2) g/dL Albumin 3.3 L (3.5-5.0) g/dL Microbiology - Last 24 Hours (Table) 06/09/20 15:30 Blood Culture - Preliminary Blood No Growth after 48 hours Assessment and Plan Assessment: * Altered mental status, likely due to toxic metabolic encephalopathy---improved * Probable intentional overdose on baclofen (due to family argument) * major depressive disorder recurrent, severe * Recurrent seizure, possible status, now resolved. Patient denies any previous history of seizures. * History of Multiple sclerosis * Nonischemic cardiomyopathy. * Morbid obesity Plan: * EEG was reported as, which revealed mildly abnormal EEG due to slightly disorganized background, with some fast and slow frequency activity, suggestive of mild encephalopathy and possible medication effect. No e pileptiform activity was seen. * On Keppra 500 mg twice a day. Decreased to 250mg every 12 hours. If the patient remains seizure free will take her off Keppra in next 1-2 days. * On Lamictal 50mg daily and Topamax 25mg 1 tab bid. * Medical management as per IM and ICU. * Psychiatry team is on board. She will go to inpatient psychiatry after her medical management. * Upon discharge, patient needs to follow-up with her neurologist within 2 weeks. Todd Mcgrath MD Neuro-Hospitalist Time with Patient: Less than 30
--- NOTE | 2020-06-12 19:14 | P.PN ---
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 Patient had a cardiac catheterization and found to have an ejection fraction about 35-40% but no evidence of any obstructive coronary artery disease. She did have abnormal troponin values. She still intubated and sedated. She seemed to be fluid overloaded and being treated with Lasix. Chest x-ray did not show any major changes. She is also being treated with possible pneumonia. At this point we'll continue with current cardiac management and will follow. June 12 21: This patient is alert and oriented today. Denies any chest pain or shortness of breath. No seizure activity. On multiple medications. Maintaining sinus rhythm. She is on small dose of metoprolol and Lasix. Her blood pressures in the range of 100. Lungs are clear. Heart is regular. 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 No coronary artery disease. We'll continue current medical therapy. When the blood pressure is more stable, may add TAY inhibitor and small dose of Aldactone. Patient is being transferred to telemetry unit. We'll follow Objective - Vital Signs Vital signs: Vital Signs Temp 98.0 F 06/12/20 16:00 Pulse 85 06/12/20 16:00 Resp 16 06/12/20 16:00 BP 104/68 06/12/20 16:00 Pulse Ox 98 06/12/20 16:00 Intake & Output 06/12/20 06/12/20 06/13/20 06:59 18:59 06:59 Intake Total 383 945 Output Total 610 2255 Balance -227 -1310 Weight 133.5 kg Intake: IV 383 265 0.9@20 200 100 Clindamycin 600 mg In 50 50 Dextrose 5% in Water 50 ml @ 50 mls/hr IVPB Q8HR [facility] Rx#:[id number] violette 33 15 levETIRAcetam IV 500 mg 100 100 In Sodium Chloride 0.9% 100 ml @ 400 mls/hr IVPB Q12HR@0000,1200 [facility] Rx#: [id number] Intake, IV Titration 200 Amount Potassium Chloride 10 meq 200 In Water For Injection 1 100ml.bag @ 100 mls/hr IVPB Q1HR [facility] Rx#: [id number] Oral 480 Output: Urine 610 2255 Other: Voiding Method Indwelling Catheter Indwelling Catheter ABP, PAP, CO, CI - Last Documented Arterial Blood Pressure 114/58 - Exam GENERAL EXAM: Patient is intubated and sedated HEENT: Normocephalic. Normal reaction of pupils, equal size, normal range of extraocular motion. No erythema or exudates in the throat. NECK: No masses, no nuchal rigidity. CHEST: No chest wall deformity. LUNGS: Diminished Breath sounds HEART: S1 and S2 normal ABDOMEN: No hepatosplenomegaly, normal bowel sounds, no guarding or rigidity. SKIN: No rashes CENTRAL NERVOUS SYSTEM: Not examined EXTREMITIES: No cyanosis, clubbing or edema. - Labs CBC & Chem 7: 06/12/20 04:00 06/12/20 04:00 Labs: Abnormal Lab Results - Last 24 Hours (Table) 06/12/20 06/12/20 Range/Units 04:00 04:00 Lymphocytes # 0.6 L (1.0-4.8) k/uL Potassium 3.4 L (3.5-5.1) mmol/L Glucose 128 H (74-99) mg/dL Total Bilirubin 1.5 H (0.2-1.3) mg/dL AST 75 H (14-36) U/L Total Protein 5.8 L (6.3-8.2) g/dL Albumin 3.3 L (3.5-5.0) g/dL Microbiology - Last 24 Hours (Table) 06/09/20 15:30 Blood Culture - Preliminary Blood No Growth after 72 hours Assessment and Plan (1) Apical ballooning syndrome Current Visit: Yes Status: Acute Code(s): I51.81 - TAKOTSUBO SYNDROME SNOMED Code(s): 954162358 (2) Acute respiratory failure Current Visit: Yes Status: Acute Code(s): J96.00 - ACUTE RESPIRATORY FAILURE, UNSP W HYPOXIA OR HYPERCAPNIA SNOMED Code(s): 46721737 (3) Seizure disorder Current Visit: Yes Status: Acute Code(s): G40.909 - EPILEPSY, UNSP, NOT INTRACTABLE, WITHOUT STATUS EPILEPTICUS SNOMED Code(s): 347543119 (4) Drug overdose Current Visit: Yes Status: Acute Code(s): T50.901A - POISONING BY UNSP DRUG/ MEDS/BIOL SUBST, ACCIDENTAL, INIT SNOMED Code(s): 83269296 Plan: . Patient is hemodynamically stable. Continue with beta blockers on small dose of diuretic. Blood pressure is borderline. When blood pressure is more stable, we'll consider adding small dose of TAY inhibitor and also Aldactone. Rest of the management to be continued. Neurology and pulmonary is following the patient
[2020-06-12] MEDS: SODIUM CHLORIDE 0.9% 1,000 ML IV SCH (20:29)
[2020-06-12] MEDS: levETIRAcetam 250 MG TAB PO SCH (20:59)
--- NOTE | 2020-06-12 22:27 | PN ---
PROGRESS NOTE DATE OF SERVICE: 06/12/2020. CHIEF COMPLAINT: Status post ingestion overdose. HISTORY OF PRESENT ILLNESS: This lady is waking up. She is now able to converse and she is able to the eat and swallow. She is still somewhat lethargic and when she was asked why she took the overdose, she stated that it was a "dare." She is going to be seen by Psychiatry. PHYSICAL EXAMINATION: Her vital signs are normal. Chest is clear. Cardiac exam is normal. Abdomen is soft, nontender. She is still lethargic. IMPRESSION: 1. Multiple drug ingestion overdose. 2. History of rheumatoid arthritis. PLAN: Progress activity and diet and she can be moved out of the unit. MMODL / IJN: [id number] /
[2020-06-13] MEDS: CLINDAMYCIN 600 MG in DEXTROSE 5% IN WATER 50 ML IVPB SCH ×8 (02:24→23:42)
[2020-06-13] MEDS: LEVOTHYROXINE 75 MCG TAB PO SCH (06:39)
[2020-06-13] MEDS: PANTOPRAZOLE 40 MG TABLET PO SCH (06:39)
[2020-06-13] MEDS: ASPIRIN 81 MG PO SCH (08:58)
[2020-06-13] MEDS: FUROSEMIDE 10 MG/ML 4 ML VIAL IV SCH (08:59)
[2020-06-13] MEDS: levETIRAcetam 250 MG TAB PO SCH (08:59)
[2020-06-13] MEDS: ENOXAPARIN 40 MG/0.4 ML SYRINGE SQ SCH (08:59)
[2020-06-13] MEDS: METOPROLOL SUCCINATE (ER) 25 MG TAB.ER.24H PO SCH (08:59)
[2020-06-13] MEDS: lamoTRIgine 25 MG TAB PO SCH (08:59)
[2020-06-13] MEDS: TOPIRAMATE 25 MG TAB PO SCH ×2 (08:59→20:08)
[2020-06-13 09:19] LABS: ALT 24 U/L (4-34); AST 41 U/L (14-36); African American GFR (CKD) >90 (>60 ml/min/1.73 sqM); Albumin 2.8 g/dL (3.5-5.0); Alkaline Phosphatase 60 U/L (38-126); Blood Urea Nitrogen 18 mg/dL (7-17); Calcium 8.2 mg/dL (8.4-10.2); Carbon Dioxide 27 mmol/L (22-30); Glucose 106 mg/dL (74-99); Non-African American GFR(CKD) 87 (>60 ml/min/1.73 sqM); Potassium 3.1 mmol/L (3.5-5.1); Sodium 138 mmol/L (137-145); Total Bilirubin 1.3 mg/dL (0.2-1.3); Total Protein 5.3 g/dL (6.3-8.2)
[2020-06-13 09:23] LABS: Anion Gap 7 mmol/L; Chloride 104 mmol/L (98-107)
[2020-06-13 09:24] LABS: Basophils % (A) 1 %; Eosinophils # (A) 0.2 k/uL (0-0.7); Eosinophils % (A) 5 %; HCT 34.7 % (34.0-46.0); HGB 11.4 gm/dL (11.4-16.0); Lymphocytes # (A) 0.8 k/uL (1.0-4.8); Lymphocytes % (A) 16 %; MCH 30.7 pg (25.0-35.0); MCV 93.2 fL (80.0-100.0); Mean Platelet Volume 7.6; Monocytes # (A) 0.3 k/uL (0-1.0); Monocytes % (A) 7 %; Neutrophils # (A) 3.3 k/uL (1.3-7.7); Neutrophils % (A) 70 %; Platelet Count 178 k/uL (150-450); RBC 3.72 m/uL (3.80-5.40); RDW 13.7 % (11.5-15.5); WBC 4.7 k/uL (3.8-10.6)
--- NOTE | 2020-06-13 12:34 | P.PN ---
Subjective Progress Note Date: 06/13/20 Principal diagnosis: Respiratory failure. Patient was reevaluated today on 06/10/2020, patient remains in the ICU, intubated and mechanically ventilated. She is on assist control rate of 14 tidal volume of 500 FiO2 40% PEEP of 5. I cut down her FiO2 down to 35%. ABG showed a pO2 of 114 pCO2 36 pH of 7.39. Patient is on propofol which I plan to hold and assess mental status as well as possibly assess for potential weaning. This was done, and shortly after the dose went down patient was extremely agitated, biting on the tube, was not appropriate, and she was placed back on propofol. Chest x-ray today was reviewed. It showed patchy densities within bilateral lung, very much consistent with the clinical picture of aspiration pneumonia, patient remains on antibiotics empirically for aspiration pneumonia. CBC showed normal WBC count normal hemoglobin normal differential. And normal platelets. Basic metabolic profile is normal except for low potassium of 3.4. Liver enzymes are borderline elevated. Urinalysis is relatively unremarkable except for hematuria, possibly related to catheter insertion. On 06/11/2020 patient seen in follow-up in intensive care unit, she remains sedated and intubated on mechanical ventilator, on assist control mode of ventilation with a rate of 14, tidal volume is 500, FiO2 35% and PEEP of 5, this morning's blood gas has been reviewed showing a pO2 of 128, pCO2 of 40, and pH of 7.41, and that was done on 35% FiO2 and FiO2 had since been dropped to 25%, patient presented on 0.9 normal saline at a rate of 20 ML per hour, Diprivan is a 20 mics per kilo per minute, no other drips, no tube feedings have been started yet with the goal of possible extubation today. Her chest x-ray today shows perihilar basilar infiltrates left greater than right without significant change. Today's labs have been reviewed, white blood cell count is normal at 6.2, hemoglobin is 13, sodium is 139 with potassium is 3.6, chloride is 109, CO2 is 25, B1 is 11 creatinine 0.73. No obvious seizure activity has been noted since admission , neurology is following, EEG is pending, patient is currently on Keppra 500 mg twice daily, in addition to Lamictal and Topamax. She is on empiric antibiotics in the form of clindamycin for possibility of aspiration pneumonia and she was given 1 dose of IV Lasix last night 20 mg, however overall remains in positive fluid balance. Her blood and sputum cultures have been negative thus far. Her urine looks turbid, however urinalysis on admission did not suggest presence of urinary tract infection. On 06/12/2020 patient seen in follow-up in intensive care unit, she was successfully weaned and extubated from mechanical ventilator yesterday on 06/11/2020, she is tolerating extubation quite well so far, she is awake and alert, she was confused last night, doing better today, no agitation, she is cu rrently breathing comfortably, she is on 2 L of oxygen pulse ox 100%, occasional harsh cough, nonproductive, no comments of chest pain, afebrile, hemodynamically she is stable. She remains on clindamycin for empiric and pneumatic coverage, no seizure activity was noted, she remains on a combination of Lamictal, Keppra and Topamax, neurology is following, she is on Lovenox for GI prophylaxis, and we started her on daily dose of Lasix 40 mg daily and she has produced 1.1 L in the urine output and she is in -230 mL fluid balance over the last 24 hours, today's labs have been reviewed showing CBC which is unremarkable with the exception a lymphopenia with lymphocyte count of 0.6, sodium of 139, potassium is 3.4 which is being replaced per protocol, the rest of electrolytes and renal profile were unremarkable, AST of 75, ALT and alk phos were within normal limits, sputum and blood cultures have been negative thus far, today's chest x- ray was a worsening left greater than right basilar atelectasis versus infiltrate. Small to tiny left pleural effusion. Persistent mild cardiomegaly and elevated left hemidiaphragm. Progress note dated 06/13/2020. This is a 60-year-old female, that was in the intensive care unit, on the mechanical ventilator. The patient was able to be extubated on June 11. She was moved out of the intensive care unit, and is seen today on the third floor, room 357. The patient is currently not receiving any supplemental oxygen. Her saturations are between 91 and 95%. She's getting saline at 20 mL an hour, she is feeling much better. She is having significant cough, without phlegm production. Labs today include a white count 4.7, hemoglobin 11.4, hematocrit 34.7, and platelet count 178,000. Sodium 138, potassium 3.1, chloride 104, CO2 27, anion gap 7, BUN 18, creatinine 0.76. No chest x-ray today. Objective - Vital Signs Vital signs: Vital Signs Temp 97.5 F L 06/13/20 12:00 Pulse 113 H 06/13/20 12:00 Resp 18 06/13/20 12:00 BP 91/61 06/13/20 12:00 Pulse Ox 91 L 06/13/20 12:00 Intake & Output 06/12/20 06/13/20 06/13/20 18:59 06:59 18:59 Intake Total 945 240 Output Total 2255 200 1200 Balance -1310 -200 -960 Weight 94.5 kg Intake: IV 265 0.9@20 100 Clindamycin 600 mg In 50 Dextrose 5% in Water 50 ml @ 50 mls/hr IVPB Q8HR [facility] Rx#:[id number] violette 15 levETIRAcetam IV 500 mg 100 In Sodium Chloride 0.9% 100 ml @ 400 mls/hr IVPB Q12HR@0000,1200 [facility] Rx#: [id number] Intake, IV Titration 200 Amount Potassium Chloride 10 meq 200 In Water For Injection 1 100ml.bag @ 100 mls/hr IVPB Q1HR [facility] Rx#: [id number] Oral 480 240 Output: Urine 2255 200 1200 Other: Voiding Method Indwelling Catheter Indwelling Catheter Indwelling Catheter ABP, PAP, CO, CI - Last Documented Arterial Blood Pressure 114/58 - Exam No acute distress, oriented 3. Not on any supplemental oxygen, with more than adequate saturations. Frequent dry nonproductive cough. HEENT examination is grossly unremarkable. Neck supple. Full range of motion. No adenopathy thyromegaly or neck vein distention. Cardiovascular examination reveals regular rhythm rate. S1-S2 normal. No S3 or S4. No discernible murmur noted. Heart rate 101. Lungs reveal mostly clear breath sounds. A few scattered rhonchi are noted. No wheezes or crackles. Breath sounds equal bilaterally. Abdomen soft bowel sounds are heard. No masses or tenderness. Extremities are intact. No cyanosis clubbing or edema. Skin is without rash or lesion. Neurologic examination is brief but nonfocal. - Labs CBC & Chem 7: 06/13/20 08:26 06/13/20 08:26 Labs: Abnormal Lab Results - Last 24 Hours (Table) 06/13/20 06/13/20 Range/Units 08:26 08:26 RBC 3.72 L (3.80-5.40) m/uL Lymphocytes # 0.8 L (1.0-4.8) k/uL Potassium 3.1 L (3.5-5.1) mmol/L BUN 18 H (7-17) mg/dL Glucose 106 H (74-99) mg/dL Calcium 8.2 L (8.4-10.2) mg/dL AST 41 H (14-36) U/L Total Protein 5.3 L (6.3-8.2) g/dL Albumin 2.8 L (3.5-5.0) g/dL Microbiology - Last 24 Hours (Table) 06/09/20 15:30 Blood Culture - Preliminary Blood No Growth after 72 hours Assessment and Plan Assessment: #1. Acute hypoxic respiratory failure related to status epilepticus requiring intubation and mechanical ventilation. Patient was intubated on 06/08/2020 at the [facility] emergency department and was transferred to the [facility] on 06/09/2020. Extubated on 06/11/2020 #2. Possible aspiration pneumonia and patient is empirically covered with clindamycin #3. Nonischemic cardiomyopathy with possibility of a Takotsubo's cardiomyopathy #4. Possible intentional overdose, related to baclofen #5. History of MS #6. History of depression #7. Morbid obesity #8. History of depression Plan: Plan dated 06/13/2020. Currently, the patient appears to be doing relatively well. The patient's been weaned down to room air. She's not receiving any IV fluids. We continue to encourage him to deep breathe, cough, and clear secretions. The patient is using the incentive spirometer, every hour. She continues on IV Lasix. The patient was extubated successfully on June 11. She's not had any seizure activity. Neurology is following this patient. She remains on GI and DVT prophylaxis. Prognosis is guarded. Time with Patient: Less than 30
--- NOTE | 2020-06-13 12:40 | P.PN ---
Subjective Progress Note Date: 06/13/20 Patient was seen at bedside and she said that she's doing well. Upon seeing her she was sitting in a chair. She complained of left knee and ankle pain possibly from a fall while at home and per nurse the primary attending notified her he will do some work-up. Per the patient nurse as she continues to be doing well no further seizure-like activity. Objective - Vital Signs Vital signs: Vital Signs Temp 97.7 F 06/13/20 08:00 Pulse 101 H 06/13/20 08:00 Resp 16 06/13/20 08:00 BP 101/62 06/13/20 08:00 Pulse Ox 91 L 06/13/20 08:00 Intake & Output 06/12/20 06/13/20 06/13/20 18:59 06:59 18:59 Intake Total 945 240 Output Total 2255 200 1200 Balance -1310 -200 -960 Weight 94.5 kg Intake: IV 265 0.9@20 100 Clindamycin 600 mg In 50 Dextrose 5% in Water 50 ml @ 50 mls/hr IVPB Q8HR [facility] Rx#:[id number] violette 15 levETIRAcetam IV 500 mg 100 In Sodium Chloride 0.9% 100 ml @ 400 mls/hr IVPB Q12HR@0000,1200 [facility] Rx#: [id number] Intake, IV Titration 200 Amount Potassium Chloride 10 meq 200 In Water For Injection 1 100ml.bag @ 100 mls/hr IVPB Q1HR [facility] Rx#: [id number] Oral 480 240 Output: Urine 2255 200 1200 Other: Voiding Method Indwelling Catheter Indwelling Catheter Indwelling Catheter ABP, PAP, CO, CI - Last Documented Arterial Blood Pressure 114/58 - Exam GENERAL: The patient is sitting in a chair and is in mild acute distress. NEUROLOGICAL: Higher mental function: The patient is awake, alert, oriented to self, place and time. Patient is following commands. No aphasia and no neglect. Cranial nerves: The pupils are round, equal and reactive to light and accommodation. Visual baeza are full to confrontation throughout. Extraocular movement is intact no nystagmus is noted. Facial sensation is normal to touch throughout. The facial strength is normal throughout. HTongue is midline and moved [id number] without any difficulty. No dysarthria is noted. Motor: Gait is deferred. The strength is 5/5 over bilateral uppers. While lower seems 5-/5 bilaterally proximally while ankle seems 4+ to 5-/5.. Cerebellum: Normal finger to nose bilaterally. Sensation: Sensation is normal to touch throughout. - Labs CBC & Chem 7: 06/13/20 08:26 06/13/20 08:26 Labs: Abnormal Lab Results - Last 24 Hours (Table) 06/13/20 06/13/20 Range/Units 08:26 08:26 RBC 3.72 L (3.80-5.40) m/uL Lymphocytes # 0.8 L (1.0-4.8) k/uL Potassium 3.1 L (3.5-5.1) mmol/L BUN 18 H (7-17) mg/dL Glucose 106 H (74-99) mg/dL Calcium 8.2 L (8.4-10.2) mg/dL AST 41 H (14-36) U/L Total Protein 5.3 L (6.3-8.2) g/dL Albumin 2.8 L (3.5-5.0) g/dL Microbiology - Last 24 Hours (Table) 06/09/20 15:30 Blood Culture - Preliminary Blood No Growth after 72 hours Assessment and Plan Assessment: * Altered mental status, likely due to toxic metabolic encephalopathy---improved * Probable intentional overdose on baclofen (due to family argument) * major depressive disorder recurrent, severe * Recurrent seizure, possible status, now resolved. Patient denies any previous history of seizures. * History of Multiple sclerosis * Nonischemic cardiomyopathy. * Morbid obesity Plan: * EEG was reported as, which revealed mildly abnormal EEG due to slightly disorganized background, with some fast and slow frequency activity, suggestive of mild encephalopathy and possible medication effect. No epileptiform activity was seen. * I stopped the Keppra (currently was on 250mg 1 tab q12 hours). * On Lamictal 50mg daily and Topamax 25mg 1 tab bid. * Medical management as per IM * Psychiatry team is on board. She will go to inpatient psychiatry after her medical management. * Upon discharge, patient needs to follow-up with her neurologist within 2 weeks. * From a neurological standpoint. If patient continues to do well by tomorrow, she is clear to go to inpatient psychiatry. * The plan is discussed with the patient's nurse. Todd Mcgrath MD Neuro-Hospitalist Time with Patient: Less than 30
--- NOTE | 2020-06-13 13:42 | P.PN ---
Progress Note - Text Progress Note Date: 06/13/20 Interval History: Patient was seen sitting upright in her armchair and was directable and agreea ble to speak with the group underwriter. The patient reports significant regret over her overdosing. She is stating that she is not suicidal or homicidal. She denies any auditory or visual hallucinations but she reports no paranoia or other delusions. The patient appears to downplay the severity of her actions stating that she "was playing a game with my boyfriend and he was supposed to slap the pills out of my hand." She expresses a strong desire for discharge stating that she feels like she is [facility]. Prior to her admission to this hospital, the patient does admit that she was experiencing significant depression and stress due to the recent loss of her mother as well as the loss of her dog. She is currently not reporting any issues with sleep or appetite. The patient has been adherent with her medications and is not reporting any significant side effects at this time. Mental Status Exam: General Appearance: Patient appears to be stated age is alert, directable, and cooperative. Dressed in hospital gown. He improved hygiene and grooming. Fair eye contact. Behavior: Patient is calmly seated without any agitated behavior. Psychomotor activity slightly elevated. Speech: Patient's speech is fluent and nonpressured. Mood/Affect: Mood is "ready to go home." Affect is labile, bright to tearful. Suicidality/Homicidality: Patient currently denies having any suicidal or homicidal ideation intent or plan. Perceptions: Patient denies any visual hallucinations and denies any auditory hallucinations Though content/process: There is no evidence of any delusional thought content and thought process is linear and goal-directed. Memory and concentration: AOX3, grossly intact for the purposes of this session Judgment and insight: Poor Vital Signs Temp 97.5 F L 06/13/20 12:00 Pulse 113 H 06/13/20 12:00 Resp 18 06/13/20 12:00 BP 91/61 06/13/20 12:00 Pulse Ox 91 L 06/13/20 12:00 Assessment Major depressive disorder recurrent, severe Acute hypoxic respiratory failure hypokalemia Nonischemic cardiomyopathy History of MS Morbid obesity Plan: -At this time patient DOES meet criteria for inpatient psychiatric admission. -Delirium precautions recommended with patient including - avoiding use of narcotics and [employer] sedatives, limit anticholinergic medications when possible, frequent re-orientation, minimize use of restraints, open window shades during the day and close them at night -Would recommend the following medication changes/additions: Continue Lamictal. We will start an antidepressant upon admission to the psychiatric unit. Awaiting medical clearance. -Continue 1:1 sitter for safety -Cannot leave AMA at this time. Patient will need a petition and certification if attempting to leave AMA. -When medically stable, patient is eligible for transfer to a psych bed when available.
--- NOTE | 2020-06-13 16:34 | P.PN ---
Subjective Patient is a pleasant 60-year-old female with history of hypertension, psychiatric disorders, depression, anxiety who presented with accidental overd ose of unknown medication and then was noted to be altered mental status. Patient had seizures in the emergency department at [facility] and therefore was intubated with Ativan drip placed. She had CT brain which showed no acute process. She had initial normal troponin however troponin elevated up to 2 and therefore cardiology was consult it. She also had EKGs which showed minimal ST elevation in lead V2, V3 in the lateral leads and bedside echo showed new-onset cardiomyopathy ejection fraction 25-30% with anterior hypokinesis. Due to concern of possible evolving OK, patient was transferred to [facility] for angiography and possible PCI. Left heart catheterization was pe rformed yesterday which showed normal coronary arteries and left ventricular gram showed mildly improved ejection fraction 35-40% with apical hypokinesis consistent with Takotsubo's cardiomyopathy. Transferred to cardiac unit yesterday 06/12/20 06/13/20: Patient seen and examined at bedside, no acute distress. Blood pressure 115/58, heart rate 91, afebrile, maintaining oxygen saturation is 98% on room air sodium 138, potassium 3.1, serum creatinine 0.76 GENERAL: No acute distress. NECK: Supple without JVD or thyromegaly. LUNGS: Breath sounds diminished to auscultation bilaterally. Respiration equal and unlabored. No wheezes, rales or rhonchi. HEART: Regular rate and rhythm without murmurs, rubs or gallops. S1 and S2 heard. EXTREMITIES: Normal range of motion, no edema. No clubbing or cyanosis. Peripheral pulses intact. ASSESSMENT Apical ballooning syndrome Takotsubo's cardiomyopathy with EF mildly improved on left ventriculogram to 35- 40% Acute respiratory failure requiring intubation and mechanical ventilation. Seizure disorder Drug overdose PLAN We'll repeat echocardiogram tomorrow When blood pressure is more stable will consider adding small dose of TAY inhibitor and also Aldactone Neurology is following patient Pulmonary following patient Nurse Practitioner note has been reviewed, I agree with a documented findings and plan of care. Patient was seen and examined. Objective - Vital Signs Vital signs: Vital Signs Temp 97.7 F 06/13/20 08:00 Pulse 101 H 06/13/20 08:00 Resp 16 06/13/20 08:00 BP 101/62 06/13/20 08:00 Pulse Ox 91 L 06/13/20 08:00 Intake & Output 06/12/20 06/13/20 06/13/20 18:59 06:59 18:59 Intake Total 945 240 Output Total 2255 200 1200 Balance -1310 -200 -960 Weight 94.5 kg Intake: IV 265 0.9@20 100 Clindamycin 600 mg In 50 Dextrose 5% in Water 50 ml @ 50 mls/hr IVPB Q8HR [facility] Rx#:[id number] violette 15 levETIRAcetam IV 500 mg 100 In Sodium Chloride 0.9% 100 ml @ 400 mls/hr IVPB Q12HR@0000,1200 [facility] Rx#: [id number] Intake, IV Titration 200 Amount Potassium Chloride 10 meq 200 In Water For Injection 1 100ml.bag @ 100 mls/hr IVPB Q1HR [facility] Rx#: [id number] Oral 480 240 Output: Urine 2255 200 1200 Other: Voiding Method Indwelling Catheter Indwelling Catheter Indwelling Catheter ABP, PAP, CO, CI - Last Documented Arterial Blood Pressure 114/58 - Labs CBC & Chem 7: 06/13/20 08:26 06/13/20 08:26 Labs: Abnormal Lab Results - Last 24 Hours (Table) 06/13/20 06/13/20 Range/Units 08:26 08:26 RBC 3.72 L (3.80-5.40) m/uL Lymphocytes # 0.8 L (1.0-4.8) k/uL Potassium 3.1 L (3.5-5.1) mmol/L BUN 18 H (7-17) mg/dL Glucose 106 H (74-99) mg/dL Calcium 8.2 L (8.4-10.2) mg/dL AST 41 H (14-36) U/L Total Protein 5.3 L (6.3-8.2) g/dL Albumin 2.8 L (3.5-5.0) g/dL Microbiology - Last 24 Hours (Table) 06/09/20 15:30 Blood Culture - Preliminary Blood No Growth after 72 hours
[2020-06-13] MEDS ORDERED: Potassium Replacement Protocol 1 EACH MISC MISCELLANE PRN (16:36)
[2020-06-13] MEDS: POTASSIUM CHLORIDE ER 20 MEQ TAB.ER PO SCH ×2 (16:43→17:43)
[2020-06-13] MEDS: SODIUM CHLORIDE 0.9% 1,000 ML IV SCH (17:44)
--- NOTE | 2020-06-13 18:46 | PN ---
PROGRESS NOTE DATE OF SERVICE: 06/13/2020 CHIEF COMPLAINT: Overdose and coma. HISTORY OF PRESENT ILLNESS: This lady is much better. She is much more awake and alert. She is complaining of some pain in the left lower leg. She has had no shortness of breath, cough, hemoptysis, etc. PHYSICAL EXAMINATION: Her chest is clear. Cardiac exam is normal. The abdomen is soft and nontender. The left calf is not swollen and she has slight tenderness on the lateral aspect of the lower leg and Homans is negative. IMPRESSION: 1. Drug ingestion and overdose with coma. 2. Previous cerebrovascular accident. 3. Left lower leg pain. PLAN: Progress activity and diet and continue to look forward to her discharge. MMODL / IJN: [id number] /
[2020-06-13 20:37] LABS: Glucose,Whole Blood 130 mg/dL (75-99)
[2020-06-14 04:39] LABS: Basophils % (A) 1 %; Eosinophils # (A) 0.2 k/uL (0-0.7); Eosinophils % (A) 4 %; HCT 35.4 % (34.0-46.0); HGB 11.5 gm/dL (11.4-16.0); Lymphocytes # (A) 0.6 k/uL (1.0-4.8); Lymphocytes % (A) 15 %; MCH 30.5 pg (25.0-35.0); MCHC 32.6 g/dL (31.0-37.0); MCV 93.7 fL (80.0-100.0); Monocytes # (A) 0.3 k/uL (0-1.0); Monocytes % (A) 7 %; Neutrophils # (A) 2.9 k/uL (1.3-7.7); Neutrophils % (A) 72 %; Platelet Count 185 k/uL (150-450); RBC 3.78 m/uL (3.80-5.40); RDW 14.3 % (11.5-15.5); WBC 4.1 k/uL (3.8-10.6)
[2020-06-14] MEDS: POTASSIUM CHLORIDE ER 20 MEQ TAB.ER PO SCH ×2 (05:19→06:17)
[2020-06-14] MEDS: LEVOTHYROXINE 75 MCG TAB PO SCH (05:23)
[2020-06-14] MEDS: PANTOPRAZOLE 40 MG TABLET PO SCH (08:01)
[2020-06-14] MEDS: ENOXAPARIN 40 MG/0.4 ML SYRINGE SQ SCH (08:02)
[2020-06-14] MEDS: ASPIRIN 81 MG PO SCH (08:02)
[2020-06-14] MEDS: FUROSEMIDE 10 MG/ML 4 ML VIAL IV SCH (08:02)
[2020-06-14] MEDS: TOPIRAMATE 25 MG TAB PO SCH ×2 (08:03→22:12)
[2020-06-14] MEDS: METOPROLOL SUCCINATE (ER) 25 MG TAB.ER.24H PO SCH ×2 (08:03→08:08)
[2020-06-14] MEDS: lamoTRIgine 25 MG TAB PO SCH (08:03)
[2020-06-14 09:33] LABS: African American GFR (CKD) 109.9 (60.0-200.0); Albumin 3.5 g/dL (3.80-4.90); Albumin/Globulin Ratio 2.33 (1.60-3.17); Anion Gap 6.6 mmol/L (4.00-12.00); BUN/Creat Ratio 22.86 Ratio (12.00-20.00); Calcium 8.4 mg/dL (8.7-10.3); Carbon Dioxide 28.4 mmol/L (21.6-31.8); Globulin 1.5 g/dL (1.6-3.3); Non-African American GFR(CKD) 94.8 (60.0-200.0); Total Bilirubin 1.2 mg/dL (0.3-1.2)
--- NOTE | 2020-06-14 09:40 | XR ---
EXAMINATION TYPE: XR knee complete LT DATE OF EXAM: 06/14/2020 COMPARISON: NONE HISTORY: Pain TECHNIQUE: Three views are submitted. FINDINGS: Severe narrowing of the medial compartment of the knee joint and patellofemoral joint with hypertroph ic spurring. No acute fracture. No dislocation. Osseous structures intact.. Osseous structures are i ntact. No acute fracture seen. IMPRESSION: 1. Severe osteoarthritis.
[2020-06-14] MEDS: CLINDAMYCIN 600 MG in DEXTROSE 5% IN WATER 50 ML IVPB SCH ×6 (09:41→23:46)
--- NOTE | 2020-06-14 10:57 | US ---
EXAMINATION TYPE: US venous doppler duplex LE LT DATE OF EXAM: 06/14/2020 10:16 AM COMPARISON: NONE CLINICAL HISTORY: possible DVT. pain and swelling in left leg SIDE PERFORMED: Left TECHNIQUE: The lower extremity deep venous system is examined utilizing real time linear array sonog varun with graded compression, doppler sonography and color-flow sonography. VESSELS IMAGED: Common Femoral Vein Deep Femoral Vein Greater Saphenous Vein * Femoral Vein Popliteal Vein Small Saphenous Vein * Proximal Calf Veins (* superficial vessels) Left Leg: Negative for DVT IMPRESSION: Grayscale, color doppler, spectral doppler imaging performed of the deep veins of the lo wer extremities. There is normal flow, compressibility, vascular waveforms.
--- NOTE | 2020-06-14 12:18 | ECHOF ---
Referral Reason:check EF MEASUREMENTS -------- HEIGHT: 157.5 cm WEIGHT: 94.3 kg BP: FINDINGS -------- Sinus rhythm. Pt had prior echo dx with Takotsubo: Limited echo for EF. Overall left ventricular systolic function is moderate-severely impaired with, an EF between 30 - 35 %. CONCLUSIONS -------- 1. Pt had prior echo dx with Takotsubo: Limited echo for EF. 2. Overall left ventricular systolic function is moderate-severely impaired with, an EF between 30 - 35 %. ASSISTANT BOYS TRACK COACH: Lillian Perez RDCS
--- NOTE | 2020-06-14 13:22 | P.PN ---
Subjective Progress Note Date: 06/14/20 Principal diagnosis: Patient was reevaluated today on 06/10/2020, patient remains in the ICU, intubated and mechanically ventilated. She is on assist control rate of 14 tidal volume of 500 FiO2 40% PEEP of 5. I cut down her FiO2 down to 35%. ABG showed a pO2 of 114 pCO2 36 pH of 7.39. Patient is on propofol which I plan to hold and assess mental status as well as possibly assess for potential weaning. This was done, and shortly after the dose went down patient was extremely agitated, biting on the tube, was not appropriate, and she was placed back on propofol. Chest x-ray today was reviewed. It showed patchy densities within bilateral lung, very much consistent with the clinical picture of aspiration pneumonia, patient remains on antibiotics empirically for aspiration pneumonia. CBC showed normal WBC count normal hemoglobin normal differential. And normal platelets. Basic metabolic profile is normal except for low potassium of 3.4. Liver enzymes are borderline elevated. Urinalysis is relatively unremarkable except for hematuria, possibly related to catheter insertion. On 06/11/2020 patient seen in follow-up in intensive care unit, she remains sedated and intubated on mechanical ventilator, on assist control mode of ventilation with a rate of 14, tidal volume is 500, FiO2 35% and PEEP of 5, this morning's blood gas has been reviewed showing a pO2 of 128, pCO2 of 40, and pH of 7.41, and that was done on 35% FiO2 and FiO2 had since been dropped to 25%, patient presented on 0.9 normal saline at a rate of 20 ML per hour, Diprivan is a 20 mics per kilo per minute, no other drips, no tube feedings have been started yet with the goal of possible extubation today. Her chest x-ray today shows perihilar basilar infiltrates left greater than right without significant change. Today's labs have been reviewed, white blood cell count is normal at 6.2, hemoglobin is 13, sodium is 139 with potassium is 3.6, chloride is 109, CO2 is 25, B1 is 11 creatinine 0.73. No obvious seizure activity has been noted since admission , neurology is following, EEG is pending, patient is currently on Keppra 500 mg twice daily, in addition to Lamictal and Topamax. She is on empiric antibiotics in the form of clindamycin for possibility of aspiration pneumonia and she was given 1 dose of IV Lasix last night 20 mg, however overall remains in positive fluid balance. Her blood and sputum cultures have been negative thus far. Her urine looks turbid, however urinalysis on admission did not suggest presence of urinary tract infection. On 06/12/2020 patient seen in follow-up in intensive care unit, she was successfully weaned and extubated from mechanical ventilator yesterday on 06/11/2020, she is tolerating extubation quite well so far, she is awake and a lert, she was confused last night, doing better today, no agitation, she is currently breathing comfortably, she is on 2 L of oxygen pulse ox 100%, occasional harsh cough, nonproductive, no comments of chest pain, afebrile, hemodynamically she is stable. She remains on clindamycin for empiric and p neumatic coverage, no seizure activity was noted, she remains on a combination of Lamictal, Keppra and Topamax, neurology is following, she is on Lovenox for GI prophylaxis, and we started her on daily dose of Lasix 40 mg daily and she has produced 1.1 L in the urine output and she is in -230 mL fluid balance over the last 24 hours, today's labs have been reviewed showing CBC which is unremarkable with the exception a lymphopenia with lymphocyte count of 0.6, sodium of 139, potassium is 3.4 which is being replaced per protocol, the rest of electrolytes and renal profile were unremarkable, AST of 75, ALT and alk phos were within normal limits, sputum and blood cultures have been negative thus far, today's chest x-ray was a worsening left greater than right basilar atelectasis versus infiltrate. Small to tiny left pleural effusion. Persistent mild cardiomegaly and elevated left hemidiaphragm. Progress note dated 06/13/2020. This is a 60-year-old female, that was in the intensive care unit, on the mechanical ventilator. The patient was able to be extubated on June 11. She was moved out of the intensive care unit, and is seen today on the third floor, room 357. The patient is currently not receiving any supplemental oxygen. Her saturations are between 91 and 95%. She's getting saline at 20 mL an hour, she is feeling much better. She is having significant cough, without phlegm production. Labs today include a white count 4.7, hemoglobin 11.4, hematocrit 34.7, and platelet count 178,000. Sodium 138, potassium 3.1, chloride 104, CO2 27, anion gap 7, BUN 18, creatinine 0.76. No chest x-ray today. The patient is seen today 06/14/2020 in follow-up on the regular medical floor. She is currently resting in bed. Awake and alert in no acute distress. Maintaining good O2 saturations in the 90s on room air. Complains of a dry nonproductive cough. Otherwise doing well. Follow-up echo regarding suspected Takotsubo continues to show ejection fraction 30-35%. There is some complaints of left knee pain. X-ray revealed severe osteoarthritis. No fracture. Doppler of the left lower extremity was negative for DVT. Blood and sputum cultures revealed no growth. She remains on clindamycin, Lovenox. She has been accepted into inpatient psychiatric services. Objective - Vital Signs Vital signs: Vital Signs Temp 98 F 06/14/20 08:05 Pulse 76 06/14/20 08:05 Resp 16 06/14/20 08:05 BP 96/61 06/14/20 08:05 Pulse Ox 94 L 06/14/20 08:05 Intake & Output 06/13/20 06/14/20 06/14/20 18:59 06:59 18:59 Intake Total 530 240 Output Total 1625 2150 Balance -1095 240 -2150 Intake: IV 50 240 0.9@20 240 Clindamycin 600 mg In 50 Dextrose 5% in Water 50 ml @ 50 mls/hr IVPB Q8HR [facility] Rx#:[id number] Oral 480 Output: Urine 1625 2150 Other: Voiding Method Indwelling Catheter Indwelling Catheter Indwelling Catheter # Bowel Movements 1 ABP, PAP, CO, CI - Last Documented Arterial Blood Pressure 114/58 - Exam GENERAL EXAM: Alert, pleasant 60-year-old female patient, on room air, comfortable in no apparent distress. HEAD: Normocephalic. EYES: Normal reaction of pupils, equal size. NOSE: Clear with pink turbinates. THROAT: No erythema or exudates. NECK: No masses, no JVD. CHEST: No chest wall deformity. LUNGS: Equal air entry with no crackles, wheeze, rhonchi or dullness. CVS: S1 and S2 normal with crackles in the posterior bases left greater than right. ABDOMEN: No hepatosplenomegaly, normal bowel sounds, no guarding or rigidity. SPINE: No scoliosis or deformity SKIN: No rashes CENTRAL NERVOUS SYSTEM: No focal deficits, tone is normal in all 4 extremities. EXTREMITIES: There is no peripheral edema. No clubbing, no cyanosis. Peripheral pulses are intact. - Labs CBC & Chem 7: 06/14/20 04:07 06/14/20 08:03 Labs: Abnormal Lab Results - Last 24 Hours (Table) 06/13/20 06/13/20 06/14/20 Range/Units 19:49 20:35 04:07 RBC 3.78 L (3.80-5.40) m/uL Lymphocytes # 0.6 L (1.0-4.8) k/uL D-Dimer (<0.60) mg/L FEU Potassium 2.9 L (3.5-5.1) mmol/L BUN/Creatinine Ratio (12.00-20.00) Ratio Glucose (70-110) mg/dL POC Glucose (mg/dL) 130 H (75-99) mg/dL Calcium (8.7-10.3) mg/dL Total Protein (6.2-8.2) g/dL Albumin (3.80-4.90) g/dL Globulin (1.6-3.3) g/dL 06/14/20 06/14/20 Range/Units 04:07 09:57 RBC (3.80-5.40) m/uL Lymphocytes # (1.0-4.8) k/uL D-Dimer 3.23 H (<0.60) mg/L FEU Potassium 3.0 L (3.5-5.1) mmol/L BUN/Creatinine Ratio 22.86 H (12.00-20.00) Ratio Glucose 148 H (70-110) mg/dL POC Glucose (mg/dL) (75-99) mg/dL Calcium 8.4 L (8.7-10.3) mg/dL Total Protein 5.0 L (6.2-8.2) g/dL Albumin 3.50 L (3.80-4.90) g/dL Globulin 1.5 L (1.6-3.3) g/dL Microbiology - Last 24 Hours (Table) 06/09/20 15:30 Blood Culture - Preliminary Blood No Growth after 96 hours Assessment and Plan Assessment: 1 Acute hypoxic respiratory failure related to status epilepticus requiring intubation and mechanical ventilation. Patient was intubated on 06/08/2020 at the [facility] emergency department and was transferred to the [facility] on 06/09/2020. Extubated on 06/11/2020 2 Possible aspiration pneumonia and patient is empirically covered with clindamycin 3 Nonischemic cardiomyopathy with Takotsubo's cardiomyopathy with follow-up echocardiogram continues to show an ejection fraction 30-35% 4 Possible intentional overdose, related to baclofen 5 History of MS 6 History of depression 7 Morbid obesity 8 History of depression Plan: The patient was seen and evaluated by Dr. Mcgrath She is stable from the pulmonary and critical care standpoint On room air Plan is to transfer to inpatient psych services once cleared medically We will follow as needed I, the cosigning physician, performed a history & physical examination of the patient. Lungs sounds with crackles in the posterior bases left greater than right. Maintaining good O2 saturations in the 90s on room air. I discussed the assessment and plan of care with my nurse practitioner, Mary Patino. I attest to the above note as dictated by her.
[2020-06-14 14:30] VITALS: BMI 29.0
--- NOTE | 2020-06-14 15:03 | P.PN ---
Subjective Progress Note Date: 06/14/20 She was seen at bedside and she stated that she's doing much better compared to yesterday as well as her initial presentation. Denies of any neurological problems. Objective - Vital Signs Vital signs: Vital Signs Temp 98.8 F 06/14/20 13:41 Pulse 89 06/14/20 13:41 Resp 14 06/14/20 13:41 BP 99/65 06/14/20 13:41 Pulse Ox 97 06/14/20 13:41 Intake & Output 06/13/20 06/14/20 06/14/20 18:59 06:59 18:59 Intake Total 530 240 Output Total 1625 2150 Balance -1095 240 -2150 Weight 94.5 kg Intake: IV 50 240 0.9@20 240 Clindamycin 600 mg In 50 Dextrose 5% in Water 50 ml @ 50 mls/hr IVPB Q8HR [facility] Rx#:[id number] Oral 480 Output: Urine 1625 2150 Other: Voiding Method Indwelling Catheter Indwelling Catheter Indwelling Catheter # Bowel Movements 1 ABP, PAP, CO, CI - Last Documented Arterial Blood Pressure 114/58 - Exam GENERAL: The patient is sitting in a chair and is in mild acute distress. NEUROLOGICAL: Higher mental function: The patient is awake, alert, oriented to self, place and time. Patient is following commands. No aphasia and no neglect. Cranial nerves: The pupils are round, equal and reactive to light and accommodation. Visual baeza are full to confrontation throughout. Extraocular movement is intact no nystagmus is noted. Facial sensation is normal to touch throughout. The facial strength is normal throughout. HTongue is midline and moved [id number] without any difficulty. No dysarthria is noted. Motor: Gait is deferred. The strength is 5/5 over bilateral uppers. While lower seems 5-/5 bilaterally proximally while ankle seems 4+ to 5-/5.. Cerebellum: Normal finger to nose bilaterally. Sensation: Sensation is normal to touch throughout. - Labs CBC & Chem 7: 06/14/20 04:07 06/14/20 08:03 Labs: Abnormal Lab Results - Last 24 Hours (Table) 06/13/20 06/13/20 06/14/20 Range/Units 19:49 20:35 04:07 RBC 3.78 L (3.80-5.40) m/uL Lymphocytes # 0.6 L (1.0-4.8) k/uL D-Dimer (<0.60) mg/L FEU Potassium 2.9 L (3.5-5.1) mmol/L BUN/Creatinine Ratio (12.00-20.00) Ratio Glucose (70-110) mg/dL POC Glucose (mg/dL) 130 H (75-99) mg/dL Calcium (8.7-10.3) mg/dL Total Protein (6.2-8.2) g/dL Albumin (3.80-4.90) g/dL Globulin (1.6-3.3) g/dL 06/14/20 06/14/20 Range/Units 04:07 09:57 RBC (3.80-5.40) m/uL Lymphocytes # (1.0-4.8) k/uL D-Dimer 3.23 H (<0.60) mg/L FEU Potassium 3.0 L (3.5-5.1) mmol/L BUN/Creatinine Ratio 22.86 H (12.00-20.00) Ratio Glucose 148 H (70-110) mg/dL POC Glucose (mg/dL) (75-99) mg/dL Calcium 8.4 L (8.7-10.3) mg/dL Total Protein 5.0 L (6.2-8.2) g/dL Albumin 3.50 L (3.80-4.90) g/dL Globulin 1.5 L (1.6-3.3) g/dL Microbiology - Last 24 Hours (Table) 06/09/20 15:30 Blood Culture - Preliminary Blood No Growth after 96 hours Assessment and Plan Assessment: * Altered mental status, likely due to toxic metabolic encephalopathy---improved * Intentional overdose on baclofen (due to family argument) * major depressive disorder recurrent, severe * Recurrent seizure, possible status, now resolved. Patient denies any previous history of seizures. * History of Multiple sclerosis * Nonischemic cardiomyopathy. * Morbid obesity Plan: * EEG was reported as, which revealed mildly abnormal EEG due to slightly disorganized background, with some fast and slow frequency activity, suggestive of mild encephalopathy and possible medication effect. No epileptiform activity was seen. * On Lamictal 50mg daily and Topamax 25mg 1 tab bid. * Medical management as per IM * Psychiatry team is on board. She will go to inpatient psychiatry after her medical management. * Upon discharge, patient needs to follow-up with her neurologist within 2 weeks. * From a neurological stand point, she is clear to go to inpatient psychiatry. * The plan is discussed with the patient's nurse. Todd Mcgrath MD Neuro-Hospitalist Time with Patient: Less than 30
[2020-06-14] MEDS: KETOROLAC 15 MG/ML 1 ML VIAL IVP SCH ×2 (16:59→23:43)
--- NOTE | 2020-06-14 18:50 | PN ---
PROGRESS NOTE DATE OF SERVICE: 06/14/2020 CHIEF COMPLAINT: Coma secondary to drug ingestion overdose with elevated troponin. HISTORY OF PRESENT ILLNESS: This lady has become extremely agitated, uncooperative and threatening. She has been seen by Psychiatry and placed on a 72-hour hold pending admission to a psych unit. She has been extremely agitated, uncooperative and threatening. She is demanding something for pain and has been on morphine at home. PHYSICAL EXAMINATION: Chest is clear. The cardiac exam is normal. Abdomen is soft and nontender. IMPRESSION: 1. Status post multiple-drug ingestion and overdose. 2. Major depression. 3. Possible suicidal personality. PLAN: Toradol (only) for pain. Await psychiatric placement. MMODL / IJN: [id number] /
[2020-06-14 20:17] LABS: Glucose,Whole Blood 109 mg/dL (75-99)
[2020-06-15] MEDS: SODIUM CHLORIDE 0.9% 1,000 ML IV SCH (03:33)
[2020-06-15] MEDS: KETOROLAC 15 MG/ML 1 ML VIAL IVP SCH ×2 (05:58→12:12)
[2020-06-15] MEDS: LEVOTHYROXINE 75 MCG TAB PO SCH (05:58)
[2020-06-15] MEDS: CLINDAMYCIN 600 MG in DEXTROSE 5% IN WATER 50 ML IVPB SCH ×4 (08:36→15:40)
[2020-06-15 09:04] VITALS: BP 110/59; PULSE 91; RESP 14; TEMP 97.9
[2020-06-15] MEDS: METOPROLOL SUCCINATE (ER) 25 MG TAB.ER.24H PO SCH (09:23)
[2020-06-15] MEDS: PANTOPRAZOLE 40 MG TABLET PO SCH (09:23)
[2020-06-15] MEDS: lamoTRIgine 25 MG TAB PO SCH (09:24)
[2020-06-15] MEDS: ASPIRIN 81 MG PO SCH (09:24)
[2020-06-15] MEDS: TOPIRAMATE 25 MG TAB PO SCH (09:24)
[2020-06-15] MEDS: ENOXAPARIN 40 MG/0.4 ML SYRINGE SQ SCH (09:25)
[2020-06-15] MEDS: FUROSEMIDE 10 MG/ML 4 ML VIAL IV SCH (10:09)
[2020-06-15] MEDS ORDERED: SPIRONOLACTONE 25 MG TAB PO SCH (11:30)
--- NOTE | 2020-06-15 12:58 | PN ---
PROGRESS NOTE Mrs. Sheehan is a 60-year-old female who presented with overdose, was found to have troponin elevation and cardiomyopathy, underwent cardiac catheterization by Dr. Villarreal on the 09 of June and was found to have no obstructive disease with findings consistent with Takotsubo syndrome. She is awake, denying any chest pain. Denies any dizziness or palpitation. Hemodynamically, she is in sinus mechanism. She has no ventricular ectopic activity. She had evidence of alteration of her mental status related to toxic metabolic encephalopathy that improved. She also had a prior history of seizure. She continues to be on Lasix 40 mg IV daily, metoprolol succinate 12.5 mg daily, aspirin once a day. PHYSICAL EXAMINATION: Blood pressure 110/59 with the heart rate in 90s. LUNGS: Clear. HEART: Regular rate and rhythm. S1, S2. No S3. No rub. ABDOMEN: Soft, nontender. EXTREMITIES: No significant edema. She had a repeat echocardiogram performed yesterday revealed segmental wall motion abnormality with ejection fraction of 30% to 35%. IMPRESSION: 1. Takotsubo syndrome. 2. Overdose with metabolic encephalopathy, improving. 3. History of seizure. 4. History of multiple sclerosis. 5. History of depression. 6. Obesity. RECOMMENDATION: From the cardiac standpoint, I will increase the dose of her beta sveta, I will change her to oral diuretics and add Aldactone to her regimen. If her blood pressure is stable, then I would recommend to add an TAY inhibitor. MMODL / IJN: [id number] /
--- NOTE | 2020-06-15 13:10 | P.PN ---
Progress Note - Text Progress Note Date: 06/15/20 Interval History: Patient was seen sitting upright in her bed and was agreeable and cooperative with this interviewer. the patient continues to express significant remorse for her actions. She states that she is not suicidal or homicidal. She denies any intention or plan. She reports that she has been sleeping well and eating well. She presents as future oriented and expresses that her partner will be locking up her medication so that she has no ability to overdose. She reports no issues regarding her medications. She expresses some surprise at the events of this hospitalization, in particular when she was transferred to this hospital. She reports that she would follow up outpatient with any psychotherapy/psychiatric treatment. Mental Status Exam: General Appearance: Patient appears to be stated age is alert, directable, and cooperative. Dressed in hospital gown. Good hygiene and grooming. Behavior: Patient is calmly seated without any agitated behavior. psychomotor activity is normal. Eye contact is appropriate. Speech: Patient's speech is fluent and nonpressured. Mood/Affect: Mood is "very happy and thankful." Affect is bright and ecstatic. Suicidality/Homicidality: Patient currently denies having any suicidal or homicidal ideation, intent, or plan. Perceptions: Patient denies any visual hallucinations and denies any auditory hallucinations Though content/process: There is no evidence of any delusional thought content and thought process is linear and goal-directed. Memory and concentration: AOX3, grossly intact for the purposes of this session Judgment and insight: Improved Vital Signs Temp 97.9 F 06/15/20 09:02 Pulse 91 06/15/20 09:04 Resp 14 06/15/20 09:02 BP 110/59 06/15/20 09:02 Pulse Ox 96 06/15/20 09:02 Intake & Output 06/14/20 06/15/20 06/15/20 18:59 06:59 18:59 Intake Total 130 Output Total 2150 300 325 Balance -2019300 -325 Weight 94.5 kg Intake: IV 50 Clindamycin 600 mg In 50 Dextrose 5% in Water 50 ml @ 50 mls/hr IVPB Q8HR [facility] Rx#:[id number] Intake, IV Titration 80 Amount Sodium Chloride 0.9% 1, 80 000 ml @ 20 mls/hr IV . Q24H [facility] Rx#:[id number] Output: Urine 2150 300 325 Other: Voiding Method Indwelling Catheter Indwelling Catheter Indwelling Catheter # Bowel Movements 1 ABP, PAP, CO, CI - Last Documented Arterial Blood Pressure 114/58 Assessment Major depressive disorder recurrent, severe Acute hypoxic respiratory failure hypokalemia Nonischemic cardiomyopathy History of MS Morbid obesity Plan: -At this time patient DOES NOT meet criteria for inpatient psychiatric admission. The patient has numerous protective factors including stable housing, supportive family, no prior attempts at suicide prior to this episode, and is future/goal-oriented. -Delirium precautions recommended with patient including - avoiding use of narcotics and [employer] sedatives, limit anticholinergic medications when possible, frequent re-orientation, minimize use of restraints, open window shades during the day and close them at night -Would recommend the following medication changes/additions: Continue Lamictal. Due to nature of cardiac pathology will defer starting an antidepressant at this time. -Discontinue 1:1 sitter for safety -Recommend outpatient psychiatry/psychotherapy follow-up.
--- NOTE | 2020-06-15 13:53 | P.PN ---
Subjective Progress Note Date: 06/15/20 Principal diagnosis: Acute hypoxic respiratory failure secondary to seizure disorder and possibly multiple drug overdose. This is a 60-year-old female supposedly has multiple medical problems including seizure disorder, MS, depression, patient is primarily a patient of Patient presented to the ER at [facility], and she was noted to have altered mental status. While in the ER, patient developed seizure. Patient was intubated, and she was placed on Ativan drip after intubation. CT of the brain showed no acute process. Patient was noted to have normal troponin initially, however follow-up troponin was elevated by 2. Cardiology was consulted, EKG showed minimal ST elevation in lead V2 and V3 and in the lateral leads. Bedside echocardiogram showed severe cardiomyopathy with LV dysfunction of 25-50%, and anterior hypokinesis. The dialysis social worker was concerned about possible evolving MS, hence he arrange for the patient to be transferred to [facility], and she underwent cardiac catheterization. noted to have normal coronaries, but extremely reduced ejection fraction and apical hypokinesis likely consistent with decreased to takostubo cardiomyopathy. Patient remained on mechanical ventilation while in the pathology laboratory technologist, after the cardiac catheterization, patient was transferred to the ICU, and I was asked to see her on consultation. Patient is hemodynamically stable, she is sedated, on propofol drip, her ventilator settings are assist control rate of 14 FiO2 of 50% tidal volume is 500 and PEEP of 5. ABG is pending, and chest x-ray is pending. Supposedly the patient had a number of labs done while at [facility], none of them is available to me. There was also a concern that the patient may have overdosed on some of her medications, but the drug screen was basically unremarkable. Patient is on multiple medications for MS, depression, and she is also on methotrexate. Patient was reevaluated today on 06/10/2020, patient remains in the ICU, intubated and mechanically ventilated. She is on assist control rate of 14 tidal volume of 500 FiO2 40% PEEP of 5. I cut down her FiO2 down to 35%. ABG showed a pO2 of 114 pCO2 36 pH of 7.39. Patient is on propofol which I plan to hold and assess mental status as well as possibly assess for potential weaning. This was done, and shortly after the dose went down patient was extremely agitated, biting on the tube, was not appropriate, and she was placed back on propofol. Chest x-ray today was reviewed. It showed patchy densities within bilateral lung, very much consistent with the clinical picture of aspiration pneumonia, patient remains on antibiotics empirically for aspiration pneumonia. CBC showed normal WBC count normal hemoglobin normal differential. And normal platelets. Basic metabolic profile is normal except for low potassium of 3.4. Liver enzymes are borderline elevated. Urinalysis is relatively unremarkable except for hematuria, possibly related to catheter insertion. On 06/11/2020 patient seen in follow-up in intensive care unit, she remains sedated and intubated on mechanical ventilator, on assist control mode of ventilation with a rate of 14, tidal volume is 500, FiO2 35% and PEEP of 5, this morning's blood gas has been reviewed showing a pO2 of 128, pCO2 of 40, and pH of 7.41, and that was done on 35% FiO2 and FiO2 had since been dropped to 25%, patient presented on 0.9 normal saline at a rate of 20 ML per hour, Diprivan is a 20 mics per kilo per minute, no other drips, no tube feedings have been star john yet with the goal of possible extubation today. Her chest x-ray today shows perihilar basilar infiltrates left greater than right without significant change. Today's labs have been reviewed, white blood cell count is normal at 6.2, hemoglobin is 13, sodium is 139 with potassium is 3.6, chloride is 109, CO2 is 25, B1 is 11 creatinine 0.73. No obvious seizure activity has been noted since admission , neurology is following, EEG is pending, patient is currently on Keppra 500 mg twice daily, in addition to Lamictal and Topamax. She is on empiric antibiotics in the form of clindamycin for possibility of aspiration pneumonia and she was given 1 dose of IV Lasix last night 20 mg, however overall remains in positive fluid balance. Her blood and sputum cultures have been negative thus far. Her urine looks turbid, however urinalysis on admission did not suggest presence of urinary tract infection. On 06/12/2020 patient seen in follow-up in intensive care unit, she was successfully weaned and extubated from mechanical ventilator yesterday on 06/11/2020, she is tolerating extubation quite well so far, she is awake and alert, she was confused last night, doing better today, no agitation, she is currently breathing comfortably, she is on 2 L of oxygen pulse ox 100%, occasional harsh cough, nonproductive, no comments of chest pain, afebrile, hemodynamically she is stable. She remains on clindamycin for empiric and pneumatic coverage, no seizure activity was noted, she remains on a combination of Lamictal, Keppra and Topamax, neurology is following, she is on Lovenox for GI prophylaxis, and we started her on daily dose of Lasix 40 mg daily and she has produced 1.1 L in the urine output and she is in -230 mL fluid balance over the last 24 hours, today's labs have been reviewed showing CBC which is unremarkable with the exception a lymphopenia with lymphocyte count of 0.6, sodium of 139, potassium is 3.4 which is being replaced per protocol, the rest of electrolytes and renal profile were unremarkable, AST of 75, ALT and alk phos were within normal limits, sputum and blood cultures have been negative thus far, today's chest x-ray was a worsening left greater than right basilar atelectasis versus infiltrate. Small to tiny left pleural effusion. Persistent mild cardiomegaly and elevated left hemidiaphragm. Progress note dated 06/13/2020. This is a 60-year-old female, that was in the intensive care unit, on the mechanical ventilator. The patient was able to be extubated on June 11. She was moved out of the intensive care unit, and is seen today on the third floor, room 357. The patient is currently not receiving any supplemental oxygen. Her saturations are between 91 and 95%. She's getting saline at 20 mL an hour, she is feeling much better. She is having significant cough, without phlegm production. Labs today include a white count 4.7, hemoglobin 11.4, hematocrit 34.7, and platelet count 178,000. Sodium 138, potassium 3.1, chloride 104, CO2 27, anion gap 7, BUN 18, creatinine 0.76. No chest x-ray today. The patient is seen today 06/14/2020 in follow-up on the regular medical floor. She is currently resting in bed. Awake and alert in no acute distress. Maintaining good O2 saturations in the 90s on room air. Complains of a dry n onproductive cough. Otherwise doing well. Follow-up echo regarding suspected Takotsubo continues to show ejection fraction 30-35%. There is some complaints of left knee pain. X-ray revealed severe osteoarthritis. No fracture. Doppler of the left lower extremity was negative for DVT. Blood and sputum cultures revealed no growth. She remains on clindamycin, Lovenox. She has been accepted into inpatient psychiatric services. Patient was reevaluated today on 06/15/2020, she is on a regular medical floor, she is actually on room air, she is doing great. Sitting in bed, eating, O2 saturations 96% on room air. Patient has mostly intermittent cough. Last chest x-ray from 06/12 showed mostly worsening bibasilar atelectasis and/or infiltrates and a small tiny left pleural effusion, no follow-up chest x-ray has been done since then. Venous Doppler was negative for DVT. Patient is being followed by cardiology for her nonischemic cardiomyopathy and LV dysfunction. Blood cultures and sputum cultures have been negative since 06/09. Patient remains on clindamycin for her aspiration pneumonia she is also on Lovenox empirically and on Lasix. Objective - Vital Signs Vital signs: Vital Signs Temp 97.9 F 06/15/20 09:02 Pulse 91 06/15/20 09:04 Resp 14 06/15/20 09:02 BP 110/59 06/15/20 09:02 Pulse Ox 96 06/15/20 09:02 Intake & Output 06/14/20 06/15/20 06/15/20 18:59 06:59 18:59 Intake Total 130 Output Total 2150 300 325 Balance -2019300 -325 Weight 94.5 kg Intake: IV 50 Clindamycin 600 mg In 50 Dextrose 5% in Water 50 ml @ 50 mls/hr IVPB Q8HR JASPREET Rx#:[id number] Intake, IV Titration 80 Amount Sodium Chloride 0.9% 1, 80 000 ml @ 20 mls/hr IV . Q24H JASPREET Rx#:[id number] Output: Urine 2150 300 325 Other: Voiding Method Indwelling Catheter Indwelling Catheter Indwelling Catheter # Bowel Movements 1 ABP, PAP, CO, CI - Last Documented Arterial Blood Pressure 114/58 - Exam GENERAL EXAM: Revealed a very pleasant 60-year-old in no distress on room air. HEAD: Normocephalic. Atraumatic. EENT: PERRLA, EOMI, anicteric, no neck masses, no JVD, moist mucous membranes, no stridor. CHEST: No chest wall deformity. LUNGS: Minimal fine crackles at the bases no rhonchi and no wheezes CVS: S1 and S2 normal with crackles in the posterior bases left greater than r ight. ABDOMEN: Obese soft nontender no megaly no rebound no guarding. SKIN: No rashes CENTRAL NERVOUS SYSTEM: No focal deficits, tone is normal in all 4 extremities. EXTREMITIES: There is no peripheral edema. No clubbing, no cyanosis. Peripheral pulses are intact. Psychiatric: Normal mood affect and normal mental status examination. - Labs CBC & Chem 7: 06/14/20 04:07 06/14/20 08:03 Labs: Abnormal Lab Results - Last 24 Hours (Table) 06/14/20 Range/Units 20:15 POC Glucose (mg/dL) 109 H (75-99) mg/dL Microbiology - Last 24 Hours (Table) 06/09/20 15:30 Blood Culture - Preliminary Blood No Growth after 120 hours Assessment and Plan Assessment: Impression: Acute hypoxic respiratory failure secondary to status epilepticus requiring intubation and mechanical ventilation. Possible medications overdose. Patient was intubated on 06/08 and she was extubated on 06/05 [id number]. Aspiration pneumonia remains on clindamycin. Nonischemic cardiomyopathy and LV dysfunction. History of MS. History of depression. Morbid obesity. Recommendation: Continue antibiotics. Repeat and follow-up chest x-ray. Continue Lovenox, clindamycin, atorvastatin, Lamictal, metoprolol, Protonix, and IV fluid at KVO continue diuretics. Follow-up chest x-ray in the next 24 hours If her chest x-ray shows improvement and if the patient is cleared by cardiol kimmyy, and by neurology, should consider discharge planning in the next 24-48 hours. We'll continue to follow, ordered chest x-ray to be done in a.m. for follow-up on her aspiration pneumonia. Time with Patient: Less than 30
--- NOTE | 2020-06-15 19:54 | DS ---
DISCHARGE SUMMARY CHIEF COMPLAINT: Coma with drug ingestion overdose and elevated troponin. HISTORY OF PRESENT ILLNESS AND PHYSICAL EXAMINATION: Details of this lady's history and physical can be found in the initial workup. LABORATORY STUDIES: While she was in the hospital she had laboratory studies, details of which can be found in the laboratory section of her chart. COURSE IN THE HOSPITAL: After admission she was placed on bedrest, started on intravenous fluids and was taken to the labor commissioner. Coronary arteries were normal. Postoperatively she was taken back to ICU and retained there for several days until she became fully awake and alert. She was then moved out to a regular floor. She was seen by Psychiatry, who initially indicated that she would be going into the inpatient psych unit, but apparently made the decision after that that she could go home. She was discharged on the afternoon of June 15 and she will be followed up by our office. She will go home on light activity about the house and usual diet and medications. FINAL DIAGNOSES: 1. Multiple-drug ingestion and overdose. 2. Coma. 3. Elevated troponins. OPERATION: Cardiac cath. CONSULTATIONS: 1. Cardiology. 2. Psychiatry. She is improved. MMODL / MARIA INESN: [id number] /
[2020-06-15] MEDS ORDERED: FUROSEMIDE 20 MG TAB PO SCH (21:00)
[2020-06-16] MEDS ORDERED: ATORVASTATIN 20 MG TAB PO SCH (09:00)
[2020-06-16] MEDS ORDERED: METOPROLOL SUCCINATE (ER) 25 MG TAB.ER.24H PO SCH (09:00)
--- NOTE | 2020-07-04 08:04 | CDI ---
Documentation Clarification Form Date: 07/04/2020 07:55:00 AM From: Alon Alisiarangel Phone: Sultana Foster Admit Date: 06/09/2020 10:01:00 AM Patient Name: Cindy Sheehan Visit Number: [id number] Discharge Date: 06/15/2020 06:23:00 PM ATTENTION: The Clinical Documentation Specialists (CDI) and [facility] Coding Staff appreciate your assistance in clarifying documentation. Please respond to the clarification below the line at the bottom and electronically sign. The CDI & [facility] Coding staff will review the response and follow-up if needed. Please note: Queries are made part of the Legal Health Record. If you have any questions, please contact the author of this message via ITS. Dr. Jaxon Gates Takutsobo syndrome is listed as the probable cause of the elevated troponin in the heart catherization report. Discharge summary states drug overdose and elevated troponin. History/Risk Factors: elevated troponin, drug overdose, HTN, anxiety, depression Clinical Indicators: elevated troponin and AMS Treatment: heart catherization-no CAD-likely Takotsubo syndrome. On trazodone. Please clarify the relationship, if any, which is clinically appropriate for this patient: [ ] Takotsubo syndrome is due to the drug overdose [ ] Takotsubo syndrome is due to stress and not the drug overdose [ ] Other explanation of clinical findings (please specify) [ ] Unable to determine (no explanation for clinical findings) MTDD
--- NOTE | 2020-07-04 11:15 | HP ---
HISTORY AND PHYSICAL CHIEF COMPLAINT: Mental status changes and delirium. HISTORY OF PRESENT ILLNESS: This is the first known admission for this lady who was brought to the emergency room completely confused, extremely agitated and delirious. She could not give a history. Somebody dropped her off and stated that she had taken "a lot of her pills of which she took many." It is not clear why she had done this. There is no other history of available. She had to be sedated. Review of systems, past medical history, family history and personal and social histories are all unobtainable at time of admission. PHYSICAL EXAMINATION: Blood pressure is 145/95 with a pulse of 110, respirations could not be obtained, and she is afebrile. In general, she appeared to be slightly overweight and extremely agitated and combative. She is extremely restless. Head, ears, eyes, nose and mouth were normal. Neck exam is normal. Chest is clear. Cardiac exam demonstrates sinus tachycardia. Abdomen is soft without masses as well as could be examined. Extremities are normal. Neurologically, she had no gross lateralizing cranial nerve or sensory motor findings, but she is extremely agitated and combative. She is admitted to the hospital with diagnoses: 1. Drug ingestion and overdose, multiple substances. 2. Delirium. 3. Mental status changes. PLAN: 1. Bedrest. 2. IV fluids. 3. Sedation. 4. Suicide and seizure precautions. MMODL / IJN: [id number] /
--- NOTE | 2020-07-04 23:47 | MISC ---
MISCELLANOUS REPORT Unable to determine. MMODL / IJN: [id number] /
== END 2020-06-15 18:23 | disposition home or self-care (01) | DRG 286 ==
LOC: 2SICU 10:01 → 3SCARD 06-12 12:36 → 5NMEDONC 06-13 17:01
PROVIDERS: ADMIT Family Medicine; ATTEND Family Medicine
PROC: 4A023N7 Measurement of Cardiac Sampling and Pressure, Left Heart, Percutaneous Approach (ICD-10-PCS; 2020-06-09)
PROC: B2111ZZ Fluoroscopy of Multiple Coronary Arteries using Low Osmolar Contrast (ICD-10-PCS; 2020-06-09)
PROC: B2151ZZ Fluoroscopy of Left Heart using Low Osmolar Contrast (ICD-10-PCS; 2020-06-09)
PROC: 03HY32Z Insertion of Monitoring Device into Upper Artery, Percutaneous Approach (ICD-10-PCS; 2020-06-09)
PROC: 4A133B1 Monitoring of Arterial Pressure, Peripheral, Percutaneous Approach (ICD-10-PCS; 2020-06-09)
PROC: 4A133J1 Monitoring of Arterial Pulse, Peripheral, Percutaneous Approach (ICD-10-PCS; 2020-06-09)
PROC: 5A1945Z Respiratory Ventilation, 24-96 Consecutive Hours (ICD-10-PCS; principal; 2020-06-09 09:38)
PROC: 0DH67UZ Insertion of Feeding Device into Stomach, Via Natural or Artificial Opening (ICD-10-PCS; 2020-06-10)
PROC: 3E0G76Z Introduction of Nutritional Substance into Upper GI, Via Natural or Artificial Opening (ICD-10-PCS; 2020-06-10)
DX: I51.81 Takotsubo syndrome (principal); J96.01 Acute respiratory failure with hypoxia; G92 Toxic encephalopathy; J69.0 Pneumonitis due to inhalation of food and vomit; Z68.41 Body mass index [BMI] 40.0-44.9, adult; I42.8 Other cardiomyopathies; F33.2 Major depressive disorder, recurrent severe without psychotic features; Z99.11 Dependence on respirator [ventilator] status; T42.8X2A Poisoning by antiparkinsonism drugs and other central muscle-tone depressants, intentional self-harm, initial encounter; G40.901 Epilepsy, unspecified, not intractable, with status epilepticus; G35 Multiple sclerosis; E66.01 Morbid (severe) obesity due to excess calories; J44.9 Chronic obstructive pulmonary disease, unspecified; F19.10 Other psychoactive substance abuse, uncomplicated; Z20.822 Contact with and (suspected) exposure to COVID-19; I25.10 Atherosclerotic heart disease of native coronary artery without angina pectoris; R31.9 Hematuria, unspecified; F41.9 Anxiety disorder, unspecified; Z88.0 Allergy status to penicillin; Z79.899 Other long term (current) drug therapy; Z79.890 Hormone replacement therapy; Z87.891 Personal history of nicotine dependence; E87.6 Hypokalemia; Z86.73 Personal history of transient ischemic attack (TIA), and cerebral infarction without residual deficits; M79.662 Pain in left lower leg; M19.90 Unspecified osteoarthritis, unspecified site; I10 Essential (primary) hypertension
CPT/HCPCS: 71045; 80053; 81001; 82805; 83735; 84132; 84145; 85025; 85379; 87040; 87070; 87205; 93308; 93458; 94002; 94003; 95819